=== PATIENT | female | born 1965 | race American Indian/Alaskan Native ===

== ENCOUNTER 2020-05-17 08:42 | Emergency (ER) | payer SELFPAY ==
[2020-05-17 09:29] VITALS: BP 188/92
--- NOTE | 2020-05-17 09:35 | Emergency Department Report ---
ED General Adult HPI - General Chief complaint: Nausea/Vomiting/Diarrhea Stated complaint: VOMITING/DIARRHEA Time Seen by Provider: 05/17/20 09:29 Source: patient Mode of arrival: Ambulatory Limitations: No Limitations - History of Present Illness Initial comments: Is a very pleasant 55-year-old female who presents to the emergency department with chief complaint of nausea, vomiting, diarrhea and sore throat over the past 2 days. She reports she recently had a in the family and since finding out this news she has been having the symptoms. She reports she has been having a lot of anxiety and crying. She denies any known past medical history, current medication use or known allergy medications. She denies any associated fever, chills, night sweats, headache, dizziness, blurry vision, hematemesis, melena, hematochezia, chest pain, shortness of breath, weakness or any other associated symptoms. - Related Data Previous Rx's Medication Instructions Recorded Last Taken Type Ondansetron [Zofran Odt] 4 mg PO Q8HR #30 tab.rapdis 05/17/20 Unknown Rx Allergies Allergy/AdvReac Type Severity Reaction Status Date / Time No Known Allergies Allergy Unverified 05/17/20 09:29 ED Review of Systems ROS: Stated complaint: VOMITING/DIARRHEA Other details as noted in HPI Comment: All other systems reviewed and negative Constitutional: denies: chills, fever Eyes: denies: eye pain, eye discharge, vision change ENT: denies: ear pain, throat pain Respiratory: denies: cough, shortness of breath, wheezing Cardiovascular: denies: chest pain, palpitations Endocrine: no symptoms reported Gastrointestinal: denies: abdominal pain, nausea, diarrhea Genitourinary: denies: urgency, dysuria, discharge Musculoskeletal: denies: back pain, joint swelling, arthralgia Skin: denies: rash, lesions Neurological: denies: headache, weakness, paresthesias Psychiatric: denies: anxiety, depression Hematological/Lymphatic: denies: easy bleeding, easy bruising ED Past Medical Hx - Past Medical History Previous Medical History?: No - Surgical History Past Surgical History?: No - Social History Smoking Status: Never Smoker Substance Use Type: None - Medications Home Medications: Home Medications Medication Instructions Recorded Confirmed Last Taken Type Ondansetron [Zofran Odt] 4 mg PO Q8HR #30 tab.rapdis 05/17/20 Unknown Rx ED Physical Exam - General Limitations: No Limitations General appearance: alert, in no apparent distress, anxious (Tearful) - Head Head exam: Present: atraumatic, normocephalic - Eye Eye exam: Present: normal appearance, PERRL, EOMI Pupils: Present: normal accommodation - ENT ENT exam: Present: normal exam, normal orophraynx, mucous membranes moist - Neck Neck exam: Present: normal inspection, full ROM. Absent: tenderness, meningismus - Respiratory Respiratory exam: Present: normal lung sounds bilaterally. Absent: respiratory distress, wheezes, rales, rhonchi, stridor - Cardiovascular Cardiovascular Exam: Present: regular rate, normal rhythm, normal heart sounds. Absent: systolic murmur, diastolic murmur, rubs, gallop - GI/Abdominal GI/Abdominal exam: Present: soft, normal bowel sounds. Absent: distended, tenderness, guarding, rebound, rigid - Extremities Exam Extremities exam: Present: normal inspection, full ROM, normal capillary refill. Absent: tenderness - Back Exam Back exam: Present: normal inspection, full ROM. Absent: tenderness, CVA tenderness (R), CVA tenderness (L) - Neurological Exam Neurological exam: Present: alert, oriented X3, CN II-XII intact, normal gait - Psychiatric Psychiatric exam: Present: normal affect, normal mood - Skin Skin exam: Present: warm, dry, intact, normal color. Absent: rash ED Course Vital Signs 05/17/20 09:24 Temperature 98.5 F Pulse Rate 91 H Respiratory 20 Rate Blood Pressure 188/92 O2 Sat by Pulse 98 Oximetry ED Medical Decision Making - Medical Decision Making Patient is nontoxic in no acute distress. Vital signs are stable other than she is slightly hypertensive however she is obviously upset. She is asymptomatic hypertension and I do not think any emergent intervention is needed at this time per the [employer]. I did recommend she get her blood pressure rechecked and check it frequently at least 2-3 times a day and if she develops any change or worsening symptoms she needs to return to the emerg ency department immediately. The patient was tearful in triage and states that all the symptoms started after a in the family. I suspect that her symptoms are likely secondary to a grief reaction. I did offer and recommend to do blood work including CBC, CMP, lipase, urinalysis for a routine abdominal pain work-up although she is not having any abdominal pain her abdominal exam was completely benign she politely declined and states she just wanted something for nausea. Recommend follow-up with her primary care doctor immediately and return to the emergency department if her symptoms change or worsen. She verbalized understand these instructions and all of her questions were answered. She understood that anytime she could return to the ER if her symptoms were to change, worsen or remain persistent. She is tolerating p.o. fluids well and in no acute distress. - Differential Diagnosis Enteritis, grief reaction, small bowel obstruction Critical care attestation.: If time is entered above; I have spent that time in minutes in the direct care of this critically ill patient, excluding procedure time. ED Disposition Clinical Impression: Nausea vomiting and diarrhea, Grief reaction, Elevated blood pressure reading Disposition: - TO HOME OR SELFCARE Is pt being admited?: No Condition: Stable Instructions: Nausea, Adult, Food Choices to Help Relieve Diarrhea, Adult Prescriptions: Ondansetron [Zofran Odt] 4 mg PO Q8HR #30 tab.rapdis Referrals: BESSIE WRIGHT MD [Staff Physician] - 3-5 Days [facility] [Provider Group] - 3-5 Days Forms: Work/School Release Form(ED) Time of Disposition: 09:34
== END 2020-05-17 10:03 | disposition home or self-care (01) ==
LOC: ED 08:42
DX: F43.21 Adjustment disorder with depressed mood (principal); R11.2 Nausea with vomiting, unspecified; R03.0 Elevated blood-pressure reading, without diagnosis of hypertension; R19.7 Diarrhea, unspecified; Z79.899 Other long term (current) drug therapy
CPT/HCPCS: 99282

== ENCOUNTER 2020-05-24 12:27 | Emergency (ER) | payer OTHER ==
[2020-05-24] MEDS ORDERED: MECLIZINE 25 MG TAB PO ONE (13:19)
[2020-05-24] MEDS ORDERED: ONDANSETRON 4 MG ODT TAB PO ONE (13:19)
--- NOTE | 2020-05-24 13:21 | Emergency Department Report ---
ED General Adult HPI - General Chief complaint: Weakness Stated complaint: V/N HEADACHE/EAR ACHE/MUSCLE CRAMPS/DIZZY Time Seen by Provider: 05/24/20 13:04 Source: patient Mode of arrival: Ambulatory Limitations: No Limitations - History of Present Illness Initial comments: 55-year-old female who reports remote history of vertigo but no other significant past history presents to the ER today with complaints of nausea, vomiting, diarrhea, headache and ear pain. Patient states her symptoms started about a week ago. She states that she was seen here when the symptoms first started. She states that she was diagnosed with a viral infection and was pre scribed Zofran. Patient states that she still continues to have intermittent nausea and vomiting despite the Zofran. She still continues to have intermittent diarrhea. She reports mild substernal chest pain but he thinks is related to the vomiting as well as mild sore throat which she thinks is also related to the vomiting. She reports intermittent dizziness which she describes as a spinning sensation, headache and mainly right ear pain. He states that she had a mild dry cough but URI symptoms. She denies any wheezing or shortness of breath. She denies any abdominal pain. She denies any abd surgeries in past. She denies any fever or chills. She denies any UTI symptoms or any abnormal vaginal symptoms. She is postmenopausal. MD Complaint: n/v/d; dizzy/FALLON/right ear pain -: Gradual, week(s) (1) - Related Data Previous Rx's Medication Instructions Recorded Last Taken Type Ondansetron [Zofran Odt] 4 mg PO Q8HR #30 tab.rapdis 05/17/20 Unknown Rx Cetirizine HCl [Zyrtec 10mg tab] 10 mg PO DAILY #30 tablet 05/24/20 Unknown Rx Meclizine [Antivert] 25 mg PO TID PRN #30 tablet 05/24/20 Unknown Rx Promethazine [Phenergan] 25 mg PO Q8HR PRN #15 tab 05/24/20 Unknown Rx metFORMIN [Glucophage] 500 mg PO BID #60 tablet 05/24/20 Unknown Rx Allergies Allergy/AdvReac Type Severity Reaction Status Date / Time No Known Allergies Allergy Verified 05/24/20 13:00 ED Review of Systems ROS: Stated complaint: V/N HEADACHE/EAR ACHE/MUSCLE CRAMPS/DIZZY Other details as noted in HPI Comment: All other systems reviewed and negative ENT: ear pain, throat pain (Secondary to vomiting). denies: dental pain, hearing loss, epistaxis Respiratory: cough (Mild dry). denies: orthopnea, shortness of breath, SOB with exertion, SOB at rest, wheezing Cardiovascular: chest pain (Substernal mainly when she vomits) Gastrointestinal: nausea, vomiting, diarrhea. denies: abdominal pain, constip ation, hematemesis, melena, hematochezia Genitourinary: denies: urgency, dysuria, frequency, hematuria, discharge, abnormal menses Musculoskeletal: myalgia. denies: back pain, joint swelling, arthralgia Skin: denies: rash, lesions Neurological: headache, vertigo Psychiatric: denies: anxiety, depression, auditory hallucinations, visual hallucinations, homicidal thoughts, suicidal thoughts ED Past Medical Hx - Past Medical History Additional medical history: anemic - Surgical History Past Surgical History?: No - Social History Smoking Status: Current Some Day Smoker Substance Use Type: None - Medications Home Medications: Home Medications Medication Instructions Recorded Confirmed Last Taken Type Ondansetron [Zofran Odt] 4 mg PO Q8HR #30 tab.rapdis 05/17/20 Unknown Rx Cetirizine HCl [Zyrtec 10mg tab] 10 mg PO DAILY #30 tablet 05/24/20 Unknown Rx Meclizine [Antivert] 25 mg PO TID PRN #30 tablet 05/24/20 Unknown Rx Promethazine [Phenergan] 25 mg PO Q8HR PRN #15 tab 05/24/20 Unknown Rx metFORMIN [Glucophage] 500 mg PO BID #60 tablet 05/24/20 Unknown Rx ED Physical Exam - General Limitations: No Limitations General appearance: alert, in no apparent distress - Head Head exam: Present: atraumatic, normocephalic, normal inspection - Eye Eye exam: Present: normal appearance, PERRL, EOMI Pupils: Present: normal accommodation - ENT ENT exam: Present: normal exam, mucous membranes moist - Expanded ENT Exam Expanded TM/Canal exam: Effusion: Right TM, Left TM Mouth exam: Present: normal external inspection Throat exam: Positive: normal inspection - Neck Neck exam: Present: normal inspection, full ROM. Absent: meningismus - Respiratory Respiratory exam: Present: normal lung sounds bilaterally. Absent: respiratory distress, wheezes, rales, rhonchi, chest wall tenderness - Cardiovascular Cardiovascular Exam: Present: regular rate, normal rhythm, normal heart sounds - GI/Abdominal GI/Abdominal exam: Present: soft. Absent: distended, tenderness, guarding - Back Exam Back exam: Present: normal inspection - Neurological Exam Neurological exam: Present: alert, oriented X3, CN II-XII intact, normal gait. Absent: motor sensory deficit - Psychiatric Psychiatric exam: Present: normal affect, normal mood - Skin Skin exam: Present: intact ED Course Vital Signs 05/24/20 05/24/20 12:57 18:01 Temperature 98.1 F Pulse Rate 93 H 82 Respiratory 18 16 Rate Blood Pressure 161/86 Blood Pressure 147/82 [Right] O2 Sat by Pulse 98 98 Oximetry ED Medical Decision Making - Lab Data Result diagrams: 05/24/20 13:58 05/24/20 13:58 - Radiology Data Patient: ROYCE BERTRAND MR#: [id number] : 1965 Acct:[id number] Age/Sex: 55 / F ADM Date: 05/24/20 Loc: ED Attending Dr: Ordering Physician: ROSEANN QUACH Date of Service: 05/24/20 Procedure(s): CT head/brain wo con Accession Number(s): [id number] cc: ROSEANN QUACH CT head/brain wo con INDICATION / CLINICAL INFORMATION: 55 years Female; Dizziness x 1 day.. TECHNIQUE: Routine CT head without contrast. All CT scans at this location are performed using CT dose reduction for ALARA by means of automated exposure control. COMPARISON: None. FINDINGS: BRAIN / INTRACRANIAL CONTENTS: No acute hemorrhage, mass effect, midline shift, hydrocephalus, or acute, large territorial infarct. No signs of significant atrophy or chronic infarct. No significant white matter abnormality seen. CRANIOCERVICAL JUNCTION: No significant abnormality. ORBITS: No significant abnormality of visualized orbits. SINUSES / MASTOIDS: Visualized paranasal sinuses and mastoid air cells are essentially clear. ADDITIONAL FINDINGS: None. IMPRESSION: 1. No focal mass, hemorrhage, hydrocephalus, or acute, large territorial infarct. Signer Name: Christian Rosen MD, III Signed: 05/24/2020 3:57 PM Workstation Name: [id number] Transcribed By: HR Dictated By: Christian Rosen MD Electronically Authenticated By: Christian Rosen MD Signed Date/Time: 05/24/201556 DD/ 55 TD/TT: - Medical Decision Making 55-year-old female who reports remote history of vertigo and anemia but no other significant past history presents to the ER today with complaints of nausea, vomiting, diarrhea, headache and ear pain. Patient states her symptoms started about a week ago. She states that she was seen here when the symptoms first started. She states that she was diagnosed with a viral infection and was prescribed Zofran. Patient states that she still continues to have intermittent nausea and vomiting despite the Zofran. She still continues to have intermittent diarrhea. She reports mild substernal chest pain but he thinks is related to the vomiting as well as mild sore throat which she thinks is also related to the vomiting. She reports intermittent dizziness which she describes as a spinning sensation, headache and mainly right ear pain. He states that she had a mild dry cough but URI symptoms. She denies any wheezing or shortness of breath. She denies any abdominal pain. She denies any fever or chills. She denies any UTI symptoms or any abnormal vaginal symptoms. She is postmenopausal. 1527: Lab/chest x-ray reviewed --CBC shows normal WBC, anemia with hemoglobin of 9.8/hematocrit of 31.1 and thrombocytopenia with a platelet count of 51; CMP shows elevated glucose of 298 (she last ate yesterday afternoon and drank juice and water around 10am), and mildly elevated LFTs. No evidence of DKA. Chest x- ray shows nothing acute. EKG shows sinus rhythm with a heart rate of 82. No STEMI or ischemic changes or significant arrhythmia. She is currently well-appearing, nontoxic and not in any acute distress. She is neurologically intact with a normal gait. Discussed the results with patient, she again denies any history of diabetes but she does admit to known history of thrombocytopenia which was being monitored by her doctor in [place]. She states since moving here she has not established with a local PCP or project asst. She states does admit to have symptoms of increased thirst and polyuria but she thought it was related to her anemia. Discussed case with Dr Diallo, he recommend doing a head CT, and giving IV fluids and that patient may need to be started on metformin 1820: Fingerstick after IV fluids show that blood sugar is improved and is now 237. Head CT shows nothing acute. Patient currently resting comfortably. She reports feeling little better after IV fluids. She has not had any vomiting or diarrhea during the stay. She denies any chest pain currently. Again patient is awake alert and oriented x3 and neurologically intact with a normal gait in the ER. She is not toxic or ill-appearing. Her history, diagnostic testing and current condition does not suggest unstable angina/acute coronary syndrome, TIA/CVA, DKA sepsis or any other significant emergent issues requiring admission or emergent consult at this time. Discussed results, concerning diagnosis and treatment plan with patient. Expressed to her the importance of follow-up with the primary care doctor in one will be provided for her and her discharge instructions. She expressed understanding of instructions and agree with plan. Patient stable at time of discharge. Critical care attestation.: If time is entered above; I have spent that time in minutes in the direct care of this critically ill patient, excluding procedure time. ED Disposition Clinical Impression: Type II diabetes mellitus, Vertigo, Nausea vomiting and diarrhea, Thrombocytopenia, Anemia Disposition: DC-01 TO HOME OR SELFCARE Is pt being admited?: No Does the pt Need Aspirin: No Condition: Stable Instructions: Type 2 Diabetes Mellitus, Diagnosis, Adult, Nausea and Vomiting, Adult, [id number], Dizziness, [id number], Diabetes Mellitus Type 2 in Adults (ED) Additional Instructions: Take the metformin as prescribed. Make sure you take it with food. Take the phe nergan as needed to help with nausea, and take the meclizine and the Zyrtec as prescribed. Drink lots of water. It is important that you follow-up with the primary care doctor listed on your discharge instructions for continued monitoring a few blood sugar especially while taking the Metformin and also continue monitoring of your anemia and thrombocytopenia and possible referral to project asst. Return to the ER if your symptoms worsens or changes in any way. Prescriptions: Meclizine [Antivert] 25 mg PO TID PRN #30 tablet PRN Reason: Vertigo metFORMIN [Glucophage] 500 mg PO BID #60 tablet Promethazine [Phenergan] 25 mg PO Q8HR PRN #15 tab PRN Reason: Nausea Cetirizine HCl [Zyrtec 10mg tab] 10 mg PO DAILY #30 tablet Referrals: BESSIE WRIGHT MD [Staff Physician] - 3-5 Days Forms: Work/School Release Form(ED) Time of Disposition: 18:25
--- NOTE | 2020-05-24 14:01 | XRay Report ---
. CHEST 2 VIEWS INDICATION / CLINICAL INFORMATION: cp. COMPARISON: None available. FINDINGS: SUPPORT DEVICES: None. HEART / MEDIASTINUM: No significant abnormality. LUNGS / PLEURA: No significant pulmonary or pleural abnormality. No pneumothorax. ADDITIONAL FINDINGS: No significant additional findings. IMPRESSION: 1. No acute cardiopulmonary abnormality. Signer Name: Marvin Trotter MD Signed: 05/24/2020 1:56 PM Workstation Name: [id number]
[2020-05-24 14:16] LABS: Basophils % (Auto) 0.7 % (0.0-1.8); Eosinophils # (Auto) 0.1 K/mm3 (0.0-0.4); Eosinophils % (Auto) 1.6 % (0.0-4.3); Hematocrit 31.1 % (30.3-42.9); Hemoglobin 9.8 gm/dl (10.1-14.3); Lymphocytes # (Auto) 1.2 K/mm3 (1.2-5.4); Lymphocytes % (Auto) 25.2 % (13.4-35.0); Mean Corpuscular HGB Conc 32 % (30-34); Monocytes # (Auto) 0.3 K/mm3 (0.0-0.8); Monocytes % (Auto) 6.5 % (0.0-7.3); Red Blood Count 5.02 M/mm3 (3.65-5.03)
[2020-05-24 14:21] LABS: Mean Corpuscular Volume 62 fl (79-97); Platelet Count 51 K/mm3 (140-440)
[2020-05-24 14:34] LABS: Alanine Aminotransferase 67 units/L (7-56); Albumin 4.1 g/dL (3.9-5); Blood Urea Nitrogen 8 mg/dL (7-17); Calcium 8.5 mg/dL (8.4-10.2); Hemolysis Index 0
[2020-05-24 14:47] LABS: BUN/Creatinine Ratio 16
[2020-05-24] MEDS ORDERED: SODIUM CHLORIDE 0.9% 1000 ML 1,000 ML IV ONE (15:33)
[2020-05-24 15:52] LABS: Bilirubin,Urine NEG (Negative); Blood,Urine NEG (Negative); Color,Urine Yellow (Yellow); Mucus,Urine FEW /HPF; Urobilinogen,Urine < 2.0 mg/dL (<2.0)
--- NOTE | 2020-05-24 16:01 | Cat Scan Report ---
CT head/brain wo con INDICATION / CLINICAL INFORMATION: 55 years Female; Dizziness x 1 day.. TECHNIQUE: Routine CT head without contrast. All CT scans at this location are performed using CT dos e reduction for ALARA by means of automated exposure control. COMPARISON: None. FINDINGS: BRAIN / INTRACRANIAL CONTENTS: No acute hemorrhage, mass effect, midline shift, hydrocephalus, or acu te, large territorial infarct. No signs of significant atrophy or chronic infarct. No significant whi te matter abnormality seen. CRANIOCERVICAL JUNCTION: No significant abnormality. ORBITS: No significant abnormality of visualized orbits. SINUSES / MASTOIDS: Visualized paranasal sinuses and mastoid air cells are essentially clear. ADDITIONAL FINDINGS: None. IMPRESSION: 1. No focal mass, hemorrhage, hydrocephalus, or acute, large territorial infarct. Signer Name: Christian Rosen MD, III Signed: 05/24/2020 3:57 PM Workstation Name: [id number]
[2020-05-24 18:03] VITALS: BP 147/82
--- NOTE | 2020-05-26 13:39 | Electrocardiograph Report ---
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
== END 2020-05-24 18:45 | disposition home or self-care (01) ==
LOC: ED 12:27
DX: D64.9 Anemia, unspecified (principal); D69.6 Thrombocytopenia, unspecified; E11.9 Type 2 diabetes mellitus without complications; R11.2 Nausea with vomiting, unspecified; R42 Dizziness and giddiness; R19.7 Diarrhea, unspecified; F17.200 Nicotine dependence, unspecified, uncomplicated; Z79.899 Other long term (current) drug therapy
CPT/HCPCS: 36415; 70450; 71046; 80053; 81001; 82550; 82962; 83690; 84484; 84703; 85025; 93005; 96360; 99284; J7030; Q0162

== ENCOUNTER 2020-06-10 18:03 | Emergency (ER) | payer SELFPAY ==
[2020-06-10] MEDS ORDERED: ASPIRIN 325 MG TAB PO ONE (18:09)
[2020-06-10 18:48] VITALS: BP 159/90
--- NOTE | 2020-06-10 18:58 | Emergency Department Report ---
ED General Adult HPI - General Chief complaint: Chest Pain Stated complaint: BODY PAIN Time Seen by Provider: 06/10/20 18:45 Source: patient Mode of arrival: Ambulatory Limitations: No Limitations - History of Present Illness Initial comments: 55 year old with past medical history of DM presents to ED with complain of anxiety. Patient states she has been very stressed lately. 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 She states that she was talking to her son on the phone today she started crying, hyperventilating and started having some substernal chest pain and so her coworker brought her to the emergency room. Patient states that she is feeling better since she arrived in the emergency room. She states that she knows that her symptoms are related to stress. She states that she has been doing with her anxiety and depression issues on her own. She has not seen a primary care doctor or counselor or psychiatrist for it. She denies any SI, HI or hallucinations. She states that she smokes cigarettes but does not do any illicit drugs. She denies alcohol abuse. MD Complaint: Anxiety/Chest pain -: Gradual, week(s) (2) - Related Data Previous Rx's Medication Instructions Recorded Last Taken Type metFORMIN [Glucophage] 500 mg PO BID #60 tablet 05/24/20 Unknown Rx diazePAM TAB [Valium] 2 mg PO TID PRN #10 tablet 06/10/20 Unknown Rx Allergies Allergy/AdvReac Type Severity Reaction Status Date / Time No Known Allergies Allergy Verified 06/10/20 18:09 ED Review of Systems ROS: Stated complaint: BODY PAIN Other details as noted in HPI Comment: All other systems reviewed and negative Constitutional: denies: chills, fever Eyes: denies: eye pain, eye discharge, vision change ENT: denies: ear pain, throat pain, dental pain, hearing loss, epistaxis Respiratory: shortness of breath. denies: cough, orthopnea, SOB with exertion, SOB at rest, stridor, wheezing Cardiovascular: chest pain. denies: palpitations, dyspnea on exertion, orthopnea, edema, syncope, paroxysmal nocturnal dyspnea Gastrointestinal: denies: abdominal pain, nausea, vomiting, diarrhea, constipation, hematemesis, melena, hematochezia Genitourinary: denies: urgency, dysuria, frequency, hematuria, discharge, abnormal menses, dyspareunia Musculoskeletal: denies: back pain, joint swelling, arthralgia Skin: denies: rash, lesions, change in color, change in hair/nails, pruritus Neurological: denies: headache, weakness, numbness, paresthesias, confusion, abnormal gait, vertigo Psychiatric: denies: anxiety, depression, auditory hallucinations, visual hallucinations, homicidal thoughts, suicidal thoughts Hematological/Lymphatic: denies: easy bleeding, easy bruising ED Past Medical Hx - Past Medical History Additional medical history: anemic - Social History Smoking Status: Current Every Day Smoker Substance Use Type: None - Medications Home Medications: Home Medications Medication Instructions Recorded Confirmed Last Taken Type metFORMIN [Glucophage] 500 mg PO BID #60 tablet 05/24/20 Unknown Rx diazePAM TAB [Valium] 2 mg PO TID PRN #10 tablet 06/10/20 Unknown Rx ED Physical Exam - General Limitations: No Limitations General appearance: alert, anxious, other (pt crying intermittently ) - Head Head exam: Present: atraumatic, normocephalic, normal inspection - Eye Eye exam: Present: normal appearance, PERRL, EOMI Pupils: Present: normal accommodation - ENT ENT exam: Present: normal exam, mucous membranes moist - Neck Neck exam: Present: normal inspection, full ROM - Respiratory Respiratory exam: Present: normal lung sounds bilaterally. Absent: respiratory distress - Cardiovascular Cardiovascular Exam: Present: regular rate, normal rhythm, normal heart sounds - GI/Abdominal GI/Abdominal exam: Present: soft. Absent: distended, tenderness, guarding - Extremities Exam Extremities exam: Present: normal inspection, full ROM, normal capillary refill. Absent: pedal edema, calf tenderness - Neurological Exam Neurological exam: Present: alert, oriented X3, CN II-XII intact, normal gait - Psychiatric Psychiatric exam: Present: depressed, anxious. Absent: manic, homicidal ideation, suicidal ideation - Skin Skin exam: Present: intact ED Course Vital Signs 06/10/20 18:09 Temperature 98.4 F Pulse Rate 92 H Respiratory 20 Rate Blood Pressure 159/90 O2 Sat by Pulse 99 Oximetry ED Medical Decision Making - Medical Decision Making 55 year old with past medical history of DM presents to ED with complain of anxiety. Patient states she has been very stressed lately. 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 She states that she was talking to her son on the phone today she started crying, hyperventilating and started having some substernal chest pain and so her coworker brought her to the emergency room. Patient states that she is feeling better since she arrived in the emergency room. She states that she knows that her symptoms are related to stress. She states that she has been doing with her anxiety and depression issues on her own. She has not seen a primary care doctor or counselor or psychiatrist for it. She denies any SI, HI or hallucinations. She states that she smokes cigarettes but does not do any illicit drugs. She denies alcohol abuse. She denies any history of heart disease, lung disease, PE or DVT. 1710: Patient appears anxious, she Intermittently, but she states that she is feeling better compared to when she first came into the ER. Chest pain work-up was ordered by triage nurse but patient is refusing work-up, she states that she knows that her symptoms are related to stress. She states that she is fine and she is ready to go home. EKG shows no acute ischemic changes, STEMI or significant dysrhythmias. Other than appearing anxious patient is overall not toxic, or ill-appearing and currently is not in any pain no respiratory distress. Her vital signs are stable. She is alert and oriented x3. She is neurologic intact with a normal gait. Discussed with patient that we will give her something to help her anxiety, but we will also give her resources to follow-up on an outpatient basis with the psychiatrist or counselor in the primary care doctor. Also discussed with her that if at any point her symptoms worsens or changes she needs to return immediately to the ER including if she develops suicidal homicidal ideation. Patient expressed understanding of instructions and agree with plan. Patient was stable at time of discharge Critical care attestation.: If time is entered above; I have spent that time in minutes in the direct care of this critically ill patient, excluding procedure time. ED Disposition Clinical Impression: Anxiety Disposition: DC-01 TO HOME OR SELFCARE Is pt being admited?: No Does the pt Need Aspirin: No Condition: Stable Instructions: Generalized Anxiety Disorder, Adult, Managing Anxiety, Adult Additional Instructions: Take the valium as prescribed and as needed. Follow up with primary care physician listed on discharge instructions and also follow up with one of the psych/counsellor on list given. Return to ED if symptoms worsens or changes in anyway. Prescriptions: diazePAM TAB [Valium] 2 mg PO TID PRN #10 tablet PRN Reason: Anxiety Referrals: BESSIE WRIGHT MD [Staff Physician] - 3-5 Days Forms: Work/School Release Form(ED) Time of Disposition: 18:59
--- NOTE | 2020-06-12 17:30 | Electrocardiograph Report ---
[facility] Test Date: 2020-06-10 Test Time: 18:12:56 Pat Name: ROYCE BERTRAND Department: Room: Gender: F Type Inspector: DARIELA BILLINGSLEYB: 1965 Requested By: VIRGINIA GONZALES Order Number: [id number] Reading MD: Hayden Gould Measurements Intervals [place] Rate: 86 P: 31 SC: 179 QRS: 2 QRSD: 97 T: 25 QT: 396 QTc: 475 Interpretive Statements Sinus rhythm Low voltage, precordial leads Compared to ECG 05/24/2020 15:22:06 Low QRS voltage now present Electronically Signed On 06-12-2020 17:30:18 EDT by Hayden Gould
== END 2020-06-10 20:07 | disposition home or self-care (01) ==
LOC: ED 18:03
DX: F41.9 Anxiety disorder, unspecified (principal); F17.200 Nicotine dependence, unspecified, uncomplicated; Z79.899 Other long term (current) drug therapy
CPT/HCPCS: 93005; 99281

== ENCOUNTER 2021-08-18 08:31 | Emergency (ER) | payer SELFPAY ==
[2021-08-18 08:51] VITALS: BP 169/94
== END 2021-08-18 19:27 | disposition left against medical advice (07) ==
LOC: ED 08:31
DX: R69 Illness, unspecified (principal); Z53.21 Procedure and treatment not carried out due to patient leaving prior to being seen by health care provider

== ENCOUNTER 2021-10-28 10:28 | Inpatient (IN) | payer SELFPAY ==
--- NOTE | 2021-10-28 11:00 | Event Note ---
ED Screening Note Date of service: 10/28/21 Time: 10:59 ED Screening Note: right side flank pain x 2 days with fever dysuria hr 120, Bp 184/154, 103.0 Temp stat for bed request to main due to sepsis , triage called charge nurse sujit This initial assessment/diagnostic orders/clinical plan/treatment(s) is/are subject to change based on patients health status, clinical progression and re- assessment by fellow clinical providers in the ED. Further treatment and workup at subsequent clinical providers discretion. Patient/guardian urged not to elope from the ED as their condition may be serious if not clinically assessed and managed. Initial orders include: Active Orders 24 hr Category Date Time Status CT abdomen pelvis w con Stat Cat Scan 10/28/21 10:56 Ordered Complete Blood Count Auto Diff Stat Lab 10/28/21 10:55 Ordered Comprehensive Metabolic Panel Stat Lab 10/28/21 10:55 Ordered Lactic Acid Stat Lab 10/28/21 10:56 Ordered Lipase Stat Lab 10/28/21 10:55 Ordered Urinalysis Complete Stat Lab 10/28/21 10:55 Ordered Blood Culture Routine Micro 10/28/21 10:58 Ordered Blood Culture Stat Micro 10/28/21 10:55 Ordered
[2021-10-28 11:39] LABS: Basophils # (Auto) 0.1 K/mm3 (0.0-0.1); Basophils % (Auto) 0.5 % (0.0-1.8); Eosinophils % (Auto) 0.1 % (0.0-4.3); Hematocrit 39.8 % (30.3-42.9); Hemoglobin 12.5 gm/dl (10.1-14.3); Lymphocytes # (Auto) 1.3 K/mm3 (1.2-5.4); Lymphocytes % (Auto) 10.4 % (13.4-35.0); Mean Corpuscular HGB Conc 31 % (30-34); Mean Corpuscular Volume 70 fl (79-97); Monocytes % (Auto) 7.8 % (0.0-7.3); Platelet Count 177 K/mm3 (140-440); Red Blood Count 5.67 M/mm3 (3.65-5.03); Red Cell Distribution Width 18.9 % (13.2-15.2)
[2021-10-28 12:08] LABS: Alanine Aminotransferase 41 units/L (7-56); Albumin 4.6 g/dL (3.9-5); BUN/Creatinine Ratio 13; Blood Urea Nitrogen 10 mg/dL (7-17); Calcium 9.5 mg/dL (8.4-10.2); Hemolysis Index 0
[2021-10-28] MEDS ORDERED: MORPHINE 4 MG/1 ML INJ IV ONE (13:09)
[2021-10-28] MEDS ORDERED: PIPERACILLIN/TAZOBACTAM 3.375 3.375 GM/50 ML BAG IV ONE (13:09)
[2021-10-28] MEDS ORDERED: ONDANSETRON 4 MG/2 ML INJ IV ONE (13:10)
[2021-10-28] MEDS ORDERED: SODIUM CHLORIDE 0.9% 1000 ML 1,000 ML IV ONE (13:38)
[2021-10-28] MEDS ORDERED: ACETAMINOPHEN 325 MG TAB PO ONE (13:41)
--- NOTE | 2021-10-28 13:41 | Emergency Department Report ---
ED Fever HPI - General Chief Complaint: Fever Stated Complaint: PAIN IN SIDE / POSS UTI Time Seen by Provider: 10/28/21 13:08 Source: patient, family Exam Limitations: no limitations - History of Present Illness Initial Comments: 56-year-old -Citizen Of [place] female with no significant past medical history complains of having fever, and back pain. Has had symptoms for the last 2 days admits to some back pain rating into the front. Timing/Duration: yesterday Fever Severity/Quality: greater than 100.5 F Fever Therapy SILVICULTURIST: none Associated Symptoms: abdominal pain, muscle aches ED Review of Systems ROS: Stated complaint: PAIN IN SIDE / POSS UTI Other details as noted in HPI Constitutional: denies: chills, fever Eyes: as per HPI ENT: as per HPI Respiratory: no symptoms reported Endocrine: no symptoms reported Gastrointestinal: abdominal pain Genitourinary: as per HPI, urgency, dysuria Skin: as per HPI Neurological: as per HPI Psychiatric: as per HPI Hematological/Lymphatic: as per HPI ED Past Medical Hx - Past Medical History Previous Medical History?: No Additional medical history: anemic - Surgical History Past Surgical History?: No - Social History Smoking Status: Never Smoker Substance Use Type: None - Medications Home Medications: Home Medications Medication Instructions Recorded Confirmed Last Taken Type metFORMIN [Glucophage] 500 mg PO BID #60 tablet 05/24/20 Unknown Rx diazePAM TAB [Valium] 2 mg PO TID PRN #10 tablet 06/10/20 Unknown Rx ED Physical Exam - General Limitations: No Limitations General appearance: alert, in no apparent distress - Head Head exam: Present: atraumatic, normocephalic - Eye Eye exam: Present: normal appearance, PERRL, EOMI - ENT ENT exam: Present: normal exam, normal orophraynx, mucous membranes moist - Neck Neck exam: Present: normal inspection, full ROM. Absent: tenderness, meningismus, lymphadenopathy - Respiratory Respiratory exam: Present: normal lung sounds bilaterally - Cardiovascular Cardiovascular Exam: Present: regular rate, normal rhythm - GI/Abdominal GI/Abdominal exam: Present: soft, guarding, normal bowel sounds. Absent: distended, tenderness - Extremities Exam Extremities exam: Present: normal inspection, full ROM - Back Exam Back exam: Present: normal inspection, full ROM. Absent: tenderness, CVA tenderness (R), CVA tenderness (L) - Neurological Exam Neurological exam: Present: alert, oriented X3 - Psychiatric Psychiatric exam: Present: normal affect, normal mood - Skin Skin exam: Present: warm ED Course Vital Signs 10/28/21 10/28/21 10/28/21 10:57 12:00 12:01 Temperature 103 F H 99.1 F Pulse Rate 130 H 110 H Respiratory 18 16 Rate Blood Pressure 184/154 142/72 [Right] O2 Sat by Pulse 100 98 Oximetry 10/28/21 10/28/21 12:22 12:24 Temperature Pulse Rate 111 H Respiratory 16 Rate Blood Pressure [Right] O2 Sat by Pulse 100 Oximetry ED Medical Decision Making - Lab Data Result diagrams: 10/28/21 11:02 10/28/21 11:02 Critical care attestation.: If time is entered above; I have spent that time in minutes in the direct care of this critically ill patient, excluding procedure time. ED Disposition Clinical Impression: Pyelonephritis Disposition: ADMITTED INPATIENT Is pt being admited?: Yes Does the pt Need Aspirin: No Condition: Serious
--- NOTE | 2021-10-28 14:35 | Cat Scan Report ---
CT ABDOMEN AND PELVIS WITH CONTRAST INDICATION / CLINICAL INFORMATION: right flank pain with fever and dysuria. TECHNIQUE: Axial CT images were obtained through the abdomen and pelvis after 100 cc Omnipaque [address] scans at this location are performed using CT dose reduction for ALARA by means of automated exposure control. COMPARISON: None available. FINDINGS: LOWER CHEST: No significant abnormality. LIVER: There is hepatic steatosis. The right hepatic lobe is enlarged, measuring 23 cm in length. No other significant abnormality. GALLBLADDER: There is cholelithiasis without evidence of acute cholecystitis. BILE DUCTS: No significant abnormality. PANCREAS: No significant abnormality. SPLEEN: No significant abnormality. ADRENALS: No significant abnormality. RIGHT KIDNEY/URETER: An ovoid area of decreased attenuation is seen laterally along the right upper r enal pole measuring up to 3.5 cm on image 61 of series 601 and 3.7 cm on image 77 series 2. There is mild urothelial thickening/enhancement. A simple appearing posterior upper pole cyst measures 1.1 cm. No other significant abnormality. LEFT KIDNEY/URETER: No significant abnormality. STOMACH/SMALL BOWEL: No significant abnormality. COLON: No significant abnormality. APPENDIX: No significant abnormality. PERITONEUM: No free fluid. No free air. No fluid collection. LYMPH NODES: No significant adenopathy. VASCULATURE: No significant abnormality. URINARY BLADDER: No significant abnormality. REPRODUCTIVE ORGANS: No significant abnormality. ADDITIONAL FINDINGS: None. BONES: No significant abnormality IMPRESSION: 1. Suspected right urinary tract infection versus evolving polynephritis with a questionable right re nal abscess as above. 2. Additional findings as above. Signer Name: Fermin Retana MD Signed: 10/28/2021 2:30 PM Workstation Name: [email or web address]
[2021-10-28] MEDS ORDERED: HYDROmorphone 1 MG/1 ML INJ IV ONE (16:45)
[2021-10-28] MEDS ORDERED: HYDROmorphone 1 MG/1 ML INJ ONE (16:52)
[2021-10-28] MEDS ORDERED: KETOROLAC 30 MG/1 ML INJ ONE (17:44)
[2021-10-28] MEDS ORDERED: KETOROLAC 30 MG/1 ML INJ IV ONE (17:51)
[2021-10-28] MEDS ORDERED: HYDROmorphone 0.5 MG/0.5 ML INJ IV PRN ×2 (18:45)
[2021-10-28] MEDS ORDERED: ONDANSETRON 4 MG/2 ML INJ IV PRN (18:45)
[2021-10-28] MEDS ORDERED: VANCOMYCIN 1,750 MG in SODIUM CHLORIDE 0.9% 500 ML 500 ML IV ONE (18:45)
[2021-10-28] MEDS ORDERED: ACETAMINOPHEN 325 MG TAB PO PRN (18:45)
[2021-10-28] MEDS ORDERED: SODIUM CHLORIDE 0.9% 1000 ML 1,000 ML IV SCH (18:45)
[2021-10-28] MEDS ORDERED: SODIUM CHLORIDE 0.9% 1000 ML IV SOLN IV ONE (18:45)
--- NOTE | 2021-10-28 18:49 | History and Physical Report ---
History of Present Illness Chief complaint: I have a fever and my side hurts History of present illness: 56 YO Female with DM, Medication Noncompliance presents to ED for evaluation. Patient reports "I have a fever and my side hurts". Patient states that she has experienced right flank pain and fever over the past 2 days with persistent symptoms over the same timeframe. Patient transported to [facility] via private [place] for further care and evaluation of the aforementioned symptoms. The patient was seen and evaluated in the emergency department. All lab and imaging studies reviewed. Patient found to have sepsis secondary to pyelonephritis and due to urinary tract infection, metabolic acidosis, as well as uncontrolled diabetes mellitus. Patient CT scan showed intrarenal hypodensity. Urology transfer line notified and patient deemed not a candidate for transfer and recommend IV antibiotic therapy. Patient mated to medical floor and initiated on sepsis protocol and treated with IV antibiotic therapy and IV fluid resuscitation therapy. Patient has chest pain, palpitation, adductive cough, skin rash, recent contact, hematuria, ingestion of food/water from new or different sources, trauma, or known exposure to COVID-19. No prior admission for review. No medication at the time of admission for reconciliation. Advanced care planning conducted in ED. Past History Past Medical History: diabetes Past Surgical History: No surgical history, Other (Reviewed) Social history: single. denies: smoking, alcohol abuse, prescription drug abuse Family history: hypertension Medications and Allergies Allergies Allergy/AdvReac Type Severity Reaction Status Date / Time No Known Allergies Allergy Verified 06/10/20 18:09 Home Medications Medication Instructions Recorded Confirmed Last Taken Type metFORMIN [Glucophage] 500 mg PO BID #60 tablet 05/24/20 Unknown Rx diazePAM TAB [Valium] 2 mg PO TID PRN #10 tablet 06/10/20 Unknown Rx Review of Systems Constitutional: fever, no weight loss, no weight gain, no chills, no sweats Ears, nose, mouth and throat: no ear pain, no ear discharge, no nasal congestion Breasts: no change in shape, no swelling, no mass Cardiovascular: no chest pain, no orthopnea, no palpitations, no rapid/irregular heart beat, no edema Respiratory: no cough, no excessive sputum, no hemoptysis Gastrointestinal: no abdominal pain, no nausea, no diarrhea, no change in bowel habits Genitourinary Female: flank pain, no dysuria, no urinary frequency, no urgency Rectal: no pain, no incontinence, no bleeding Musculoskeletal: no neck stiffness, no shooting arm pain, no arm numbness/tingling, no low back pain, no shooting leg pain Integumentary: no rash, no pruritis, no redness, no wounds, no jaundice Neurological: no head injury, no weakness, no numbness, no tingling, no syncope, no tremors Psychiatric: no memory loss, no sleep disturbances, no hypersomnia, no change in libido, no suicidal ideation, no disorientation Endocrine: no cold intolerance, no polyphagia, no excessive sweating, no flushing Hematologic/Lymphatic: no easy bruising, no easy bleeding Allergic/Immunologic: no urticaria, no allergic rhinitis, no wheezing Exam - Constitutional Vitals: Temp Pulse Resp BP Pulse Ox 99.1 F 111 H 16 142/72 100 10/28/21 12:00 10/28/21 12:22 10/28/21 12:24 10/28/21 12:01 10/28/21 12:24 General appearance: Present: mild distress - EENT Eyes: Present: PERRL ENT: hearing intact, clear oral mucosa - Neck Neck: Present: supple, normal ROM - Respiratory Respiratory effort: normal Respiratory: bilateral: CTA - Cardiovascular Heart Sounds: Present: S1 & S2. Absent: rub, click - Extremities Extremities: pulses symmetrical, No edema Peripheral Pulses: abnormal (Capillary refill greater than 3.5 seconds) - Abdominal General gastrointestinal: Present: soft, non-tender, non-distended, normal bowel sounds Female genitourinary: Present: normal - Integumentary Integumentary: Present: clear, warm, dry - Musculoskeletal Musculoskeletal: gait normal, strength equal bilaterally - Psychiatric Psychiatric: appropriate mood/affect, intact judgment & insight - Neurologic Neurologic: CNII-XII intact, moves all extremities Results - Labs CBC & Chem 7: 10/28/21 11:02 10/28/21 11:02 Labs: Abnormal lab results 10/28/21 10/28/21 10/28/21 Range/Units 11:02 11:02 11:02 WBC 12.4 H (4.5-11.0) K/mm3 RBC 5.67 H (3.65-5.03) M/mm3 MCV 70 L (79-97) fl MCH 22 L (28-32) pg RDW 18.9 H (13.2-15.2) % Lymph % (Auto) 10.4 L (13.4-35.0) % [place] % (Auto) 7.8 H (0.0-7.3) % [place] # (Auto) 1.0 H (0.0-0.8) K/mm3 Seg Neutrophils % 81.2 H (40.0-70.0) % Seg Neutrophils # 10.1 H (1.8-7.7) K/mm3 Chloride 97.6 L (98-107) mmol/L Glucose 242 H (65-100) mg/dL Lactic Acid 2.60 H* (0.7-2.0) mmol/L Alkaline Phosphatase 147 H (35-129) units/L Assessment and Plan - Patient Problems (1) Sepsis Current Visit: Yes Status: Acute Qualifiers: Severe sepsis acute organ dysfunction type: acute renal failure Plan to address problem: Sepsis protocol: Chest x-ray, CBC, urinalysis, IV fluid resuscitation therapy, IV antibiotic therapy, blood culture. Maintain mean arterial pressure greater than equal to 65, monitor fluid balance, serial lactic acid level. (2) Pyelonephritis Current Visit: Yes Status: Acute Plan to address problem: Urinalysis, IV antibiotic therapy, CT scan abdomen and pelvis, (3) UTI (urinary tract infection) Current Visit: Yes Status: Acute Qualifiers: Encounter type: initial encounter Plan to address problem: IV antibiotic therapy, urinalysis. Supportive care, pain control. (4) Diabetes Current Visit: Yes Status: Acute Plan to address problem: Consistent carbohydrate diet, Accu-Chek, insulin protocol, hypoglycemia protocol. (5) Metabolic acidosis Current Visit: Yes Status: Acute Plan to address problem: IV fluid resuscitation therapy, serial lactic acid level, treat sepsis. (6) DVT prophylaxis Current Visit: Yes Status: Acute Plan to address problem: SCDs to bilateral lower extremities while in bed, (7) Advance care planning Current Visit: Yes Status: Acute Plan to address problem: Disease education conducted, care plan discussed, diagnoses discussed, prognosis discussed, patient acknowledges understanding and agreement with care plan, +30 minutes. (8) Preventative health care Current Visit: Yes Status: Acute Plan to address problem: Patient counseled regarding primary care follow-up for all age and risk factor appropriate screening test. Patient instructed to follow-up with [facility] for all age and risk factor appropriate screening test. +30 minutes.
[2021-10-28] MEDS ORDERED: DEXTROSE 50% IN WATER (25GM) 50 ML SYRINGE IV PRN (18:51)
[2021-10-28] MEDS ORDERED: diazePAM 2 MG TAB PO PRN (18:51)
[2021-10-28] MEDS ORDERED: VANCOMYCIN PHARMACY TO DOSE IV SCH (19:00)
[2021-10-28] MEDS: CEFEPIME/NS 2 GM/100 ML 2 GM/100 ML BAG IV SCH (19:30)
[2021-10-29] MEDS: oxyCODONE /ACETAMINOPHEN 5-325MG TAB PO PRN ×3 (01:14→22:46)
[2021-10-29] MEDS: ACETAMINOPHEN 325 MG TAB PO PRN ×3 (04:01→19:20)
[2021-10-29] MEDS: INSULIN LISPRO 100 UNIT/ML SUB-Q SCH ×5 (04:08→18:19)
[2021-10-29 08:29] LABS: Hematocrit 29.7 % (30.3-42.9); Hemoglobin 9.6 gm/dl (10.1-14.3); Mean Corpuscular HGB Conc 32 % (30-34); Platelet Count 100 K/mm3 (140-440); Red Blood Count 4.31 M/mm3 (3.65-5.03); Red Cell Distribution Width 18.5 % (13.2-15.2)
[2021-10-29 08:30] LABS: Mean Corpuscular Volume 69 fl (79-97)
[2021-10-29 08:50] LABS: Blood Urea Nitrogen 7 mg/dL (7-17); Calcium 8.3 mg/dL (8.4-10.2); Hemolysis Index 0
[2021-10-29 08:56] LABS: BUN/Creatinine Ratio 10
[2021-10-29] MEDS ORDERED: ACETAMINOPHEN 325 MG TAB PO ONE (09:00)
[2021-10-29] MEDS: CEFEPIME/NS 2 GM/100 ML 2 GM/100 ML BAG IV SCH ×2 (09:45→23:18)
--- NOTE | 2021-10-29 10:22 | Consultation ---
History of Present Illness - Reason for Consult Consult date: 10/29/21 - History of Present Illness -year-old complaining of fevers and flank pain. This began approximately 2 days prior to admission has been persistent since onset. On admission she was found to have sepsis with pyelonephritis, as such we are consulted. Febrile to 103.3 with a white count 13.5. Blood cultures positive for gram- negative rods awaiting finalization. Currently on cefepime Imaging personally reviewed: CT abdomen pelvis: Right pyelonephritis, possible renal abscess Review of Systems: Bold if positive, otherwise negative General: fevers, chills, rigors HEENT: visual disturbance, diplopia, eye pain Respiratory: cough, sputum, hemoptysis, shortness of breath Cardiovascular: chest pain, syncope Gastrointestinal: nausea, vomiting, diarrhea, abdominal pain Genitourinary: dysuria, hematuria, flank pain Musculoskeletal: neck pain, back pain, joint pain, edema Neurologic: headaches, seizures Hematologic: easy bruising or bleeding Endocrine: night sweats, acute weight loss Skin: rash, jaundice, redness Psychiatric: suicidal, homicidal ideation Past History Past Medical History: diabetes Past Surgical History: No surgical history, Other (Reviewed) Social history: single. denies: smoking, alcohol abuse, prescription drug abuse Family history: hypertension Medications and Allergies Allergies Allergy/AdvReac Type Severity Reaction Status Date / Time No Known Allergies Allergy Verified 06/10/20 18:09 Home Medications Medication Instructions Recorded Confirmed Last Taken Type metFORMIN [Glucophage] 500 mg PO BID #60 tablet 05/24/20 Unknown Rx diazePAM TAB [Valium] 2 mg PO TID PRN #10 tablet 06/10/20 Unknown Rx Active Meds: Active Medications Acetaminophen (Acetaminophen 325 Mg Tab) 650 mg PO Q6H PRN PRN Reason: Pain, Mild (1-3) Last Admin: 10/29/21 04:01 Dose: 650 mg Dextrose (Dextrose 50% In Water (25gm) 50 Ml Syringe) 50 ml IV Q30MIN PRN; Protocol PRN Reason: Hypoglycemia Diazepam (Diazepam 2 Mg Tab) 2 mg PO TID PRN PRN Reason: Anxiety Hydromorphone HCl (Hydromorphone 0.5 Mg/0.5 Ml Inj) 0.25 mg IV Q4H PRN PRN Reason: Pain, Moderate (4-6) Hydromorphone HCl (Hydromorphone 0.5 Mg/0.5 Ml Inj) 0.5 mg IV Q23H PRN PRN Reason: Pain , Severe (7-10) Cefepime HCl (Cefepime/Ns 2 Gm/100 Ml) 2 gm in 100 mls @ 200 mls/hr IV Q12H [facility]; Protocol Last Admin: 10/29/21 09:45 Dose: 200 mls/hr Insulin Human Lispro (Insulin Lispro 100 Unit/Ml) 0 unit SUB-Q ACHS [facility]; Protocol Last Admin: 10/29/21 09:44 Dose: 3 unit Ondansetron HCl (Ondansetron 4 Mg/2 Ml Inj) 4 mg IV Q8H PRN PRN Reason: Nausea And Vomiting Oxycodone/Acetaminophen (Oxycodone /Acetaminophen 5-325mg Tab) 1 tab PO Q6H PRN PRN Reason: Pain, Moderate (4-6) Last Admin: 10/29/21 01:14 Dose: 1 tab Sodium Chloride (Sodium Chloride 0.9% 10 Ml Flush Syringe) 10 ml IV BID [facility] Last Admin: 10/29/21 09:50 Dose: 10 ml Sodium Chloride (Sodium Chloride 0.9% 10 Ml Flush Syringe) 10 ml IV PRN PRN PRN Reason: LINE FLUSH Physical Examination - Physical Exam Narrative exam: Physical Exam: Constitutional: Alert, cooperative. No acute distress Head, Ears, Nose: Normocephalic, atraumatic. External ears, nose normal Eyes: Conjunctivae/corneas clear. No icterus. No ptosis. Neck: Supple, no meningeal signs Oral: dentition fair, no thrush Cardiovascular: S1, S2 normal. Respiratory: Good air entry, clear to auscultation bilaterally GI: Soft, non-tender; bowel sounds normal. No peritoneal signs. Musculoskeletal: Right flank pain Skin: No rash or abscess Hem/Lymphatic: No palpable cervical or supraclavicular nodes. No lymphangitis Psych: Mood ok. Affect normal Neurological: Awake, alert, oriented. No gross abnormality - Constitutional Vitals: Vital Signs Temp Pulse Resp BP Pulse Ox 103.1 F H 69 20 160/73 100 10/29/21 05:43 10/29/21 05:55 10/29/21 05:59 10/29/21 05:43 10/29/21 05:59 Temperature -Last 24 Hours Temperature 103.1 F Temperature 103.3 F Temperature 103.3 F Temperature 98.5 F Temperature 99.1 F Temperature 103 F Results - Labs CBC & Chem 7: 10/29/21 08:08 10/29/21 08:08 Labs: Abnormal lab results 10/28/21 10/28/21 10/28/21 Range/Units 11:02 11:02 11:02 WBC 12.4 H (4.5-11.0) K/mm3 RBC 5.67 H (3.65-5.03) M/mm3 Hgb (10.1-14.3) gm/dl Hct (30.3-42.9) % MCV 70 L (79-97) fl MCH 22 L (28-32) pg RDW 18.9 H (13.2-15.2) % Plt Count (140-440) K/mm3 Lymph % (Auto) 10.4 L (13.4-35.0) % [place] % (Auto) 7.8 H (0.0-7.3) % [place] # (Auto) 1.0 H (0.0-0.8) K/mm3 Seg Neutrophils % 81.2 H (40.0-70.0) % Seg Neutrophils # 10.1 H (1.8-7.7) K/mm3 Potassium (3.6-5.0) mmol/L Chloride 97.6 L (98-107) mmol/L Carbon Dioxide (22-30) mmol/L Glucose 242 H (65-100) mg/dL POC Glucose (70-105) mg/dL Lactic Acid 2.60 H* (0.7-2.0) mmol/L Calcium (8.4-10.2) mg/dL Alkaline Phosphatase 147 H (35-129) units/L 10/29/21 10/29/21 10/29/21 Range/Units 04:08 07:53 08:08 WBC 13.5 H (4.5-11.0) K/mm3 RBC (3.65-5.03) M/mm3 Hgb 9.6 L (10.1-14.3) gm/dl Hct 29.7 L D (30.3-42.9) % MCV 69 L (79-97) fl MCH 22 L (28-32) pg RDW 18.5 H (13.2-15.2) % Plt Count 100 L (140-440) K/mm3 Lymph % (Auto) (13.4-35.0) % [place] % (Auto) (0.0-7.3) % [place] # (Auto) (0.0-0.8) K/mm3 Seg Neutrophils % (40.0-70.0) % Seg Neutrophils # (1.8-7.7) K/mm3 Potassium (3.6-5.0) mmol/L Chloride (98-107) mmol/L Carbon Dioxide (22-30) mmol/L Glucose (65-100) mg/dL POC Glucose 195 H 214 H (70-105) mg/dL Lactic Acid (0.7-2.0) mmol/L Calcium (8.4-10.2) mg/dL Alkaline Phosphatase (35-129) units/L // Range/Units 08:08 WBC (4.5-11.0) K/mm3 RBC (3.65-5.03) M/mm3 Hgb (10.1-14.3) gm/dl Hct (30.3-42.9) % MCV (79-97) fl MCH (28-32) pg RDW (13.2-15.2) % Plt Count (140-440) K/mm3 Lymph % (Auto) (13.4-35.0) % [place] % (Auto) (0.0-7.3) % [place] # (Auto) (0.0-0.8) K/mm3 Seg Neutrophils % (40.0-70.0) % Seg Neutrophils # (1.8-7.7) K/mm3 Potassium 3.1 L D (3.6-5.0) mmol/L Chloride (98-107) mmol/L Carbon Dioxide 21 L (22-30) mmol/L Glucose 208 H (65-100) mg/dL POC Glucose (70-105) mg/dL Lactic Acid (0.7-2.0) mmol/L Calcium 8.3 L (8.4-10.2) mg/dL Alkaline Phosphatase (35-129) units/L Assessment and Plan Cultures: Blood culture GNR pending finalization A/P: 56 yo F PMHx Dm2 presents with: #Acute sepsis: with fevers, leukocytosis. Secondary to bacteremia; pyelonephrit is #Right sided pyelonephritis: with possible renal abscess. If sepsis picture does not improve may need to repeat CT with contrast to further evaluate for potential abscess. #DM2: tight glycemic control for best outcomes. Recs: -Continue cefepime, increase to 2g q8h. -Follow up blood/urine cultures. If ESBL change to meropenem 1g q8h. -If sepsis picture resolves will plan to DC on Cipro 500mg q12h to complete 14 days total antibiotics. -If no improvement would need CT with contrast to re-evaluate potential abscess Thank you for the consult, we will continue to follow. MD Ginna [facility] O: [phone] F: [phone]
--- NOTE | 2021-10-29 11:43 | Consultation ---
History of Present Illness - Reason for Consult Consult date: 10/29/21 Right pyelonephrosis - History of Present Illness Patient with a history of diabetes, no surgical history. Patient has no history of kidney stones. She has a history of UTIs as a teenager but none recently. She presents with worsening right flank pain. In the ER, the patient underwent a CT of the abdomen pelvis with contrast which demonstrated decreased perfusion to the upper pole of the right kidney with decreased attenuation. A small simple cyst is present in upper pole as well. No abscess or fluid collection. No hydronephrosis. No significant Red nephric stranding. Patient is been started on empiric antibiotic. At time of examination, the patient is sitting up at bedside and eating breakfast with no significant complaints. Past History Past Medical History: diabetes Past Surgical History: No surgical history, Other (Reviewed) Social history: single. denies: smoking, alcohol abuse, prescription drug abuse Family history: hypertension Medications and Allergies Allergies Allergy/AdvReac Type Severity Reaction Status Date / Time No Known Allergies Allergy Verified 06/10/20 18:09 Home Medications Medication Instructions Recorded Confirmed Last Taken Type metFORMIN [Glucophage] 500 mg PO BID #60 tablet 05/24/20 Unknown Rx diazePAM TAB [Valium] 2 mg PO TID PRN #10 tablet 06/10/20 Unknown Rx Active Meds: Active Medications Acetaminophen (Acetaminophen 325 Mg Tab) 650 mg PO Q6H PRN PRN Reason: Pain, Mild (1-3) Last Admin: 10/29/21 04:01 Dose: 650 mg Dextrose (Dextrose 50% In Water (25gm) 50 Ml Syringe) 50 ml IV Q30MIN PRN; Protocol PRN Reason: Hypoglycemia Diazepam (Diazepam 2 Mg Tab) 2 mg PO TID PRN PRN Reason: Anxiety Hydromorphone HCl (Hydromorphone 0.5 Mg/0.5 Ml Inj) 0.25 mg IV Q4H PRN PRN Reason: Pain, Moderate (4-6) Hydromorphone HCl (Hydromorphone 0.5 Mg/0.5 Ml Inj) 0.5 mg IV Q23H PRN PRN Reason: Pain , Severe (7-10) Cefepime HCl (Cefepime/Ns 2 Gm/100 Ml) 2 gm in 100 mls @ 200 mls/hr IV Q12H [facility]; Protocol Last Admin: 10/29/21 09:45 Dose: 200 mls/hr Insulin Human Lispro (Insulin Lispro 100 Unit/Ml) 0 unit SUB-Q ACHS [facility]; Protocol Last Admin: 10/29/21 09:44 Dose: 3 unit Ondansetron HCl (Ondansetron 4 Mg/2 Ml Inj) 4 mg IV Q8H PRN PRN Reason: Nausea And Vomiting Oxycodone/Acetaminophen (Oxycodone /Acetaminophen 5-325mg Tab) 1 tab PO Q6H PRN PRN Reason: Pain, Moderate (4-6) Last Admin: 10/29/21 01:14 Dose: 1 tab Sodium Chloride (Sodium Chloride 0.9% 10 Ml Flush Syringe) 10 ml IV BID [facility] Last Admin: 10/29/21 09:50 Dose: 10 ml Sodium Chloride (Sodium Chloride 0.9% 10 Ml Flush Syringe) 10 ml IV PRN PRN PRN Reason: LINE FLUSH Review of Systems All systems: negative Exam - Constitutional Vitals: Temp Pulse Resp BP Pulse Ox 103.1 F H 69 20 160/73 99 10/29/21 05:43 10/29/21 05:55 10/29/21 05:59 10/29/21 05:43 10/29/21 11:36 General appearance: Present: no acute distress - EENT ENT: hearing intact - Neck Neck: Present: supple, normal ROM - Respiratory Respiratory effort: normal - Abdominal General gastrointestinal: Present: deferred - Psychiatric Psychiatric: appropriate mood/affect, cooperative Results - Labs CBC & Chem 7: 10/29/21 08:08 10/29/21 08:08 Labs: Abnormal lab results 10/28/21 10/28/21 10/28/21 Range/Units 11:02 11:02 11:02 WBC 12.4 H (4.5-11.0) K/mm3 RBC 5.67 H (3.65-5.03) M/mm3 Hgb (10.1-14.3) gm/dl Hct (30.3-42.9) % MCV 70 L (79-97) fl MCH 22 L (28-32) pg RDW 18.9 H (13.2-15.2) % Plt Count (140-440) K/mm3 Lymph % (Auto) 10.4 L (13.4-35.0) % Potassium (3.6-5.0) mmol/L Chloride 97.6 L (98-107) mmol/L Carbon Dioxide (22-30) mmol/L Glucose 242 H (65-100) mg/dL POC Glucose (70-105) mg/dL Lactic Acid 2.60 H* (0.7-2.0) mmol/L Calcium (8.4-10.2) mg/dL Alkaline Phosphatase 147 H (35-129) units/L 10/29/21 10/29/21 10/29/21 Range/Units 04:08 07:53 08:08 WBC 13.5 H (4.5-11.0) K/mm3 RBC (3.65-5.03) M/mm3 Hgb 9.6 L (10.1-14.3) gm/dl Hct 29.7 L D (30.3-42.9) % MCV 69 L (79-97) fl MCH 22 L (28-32) pg RDW 18.5 H (13.2-15.2) % Plt Count 100 L (140-440) K/mm3 Lymph % (Auto) (13.4-35.0) % Potassium (3.6-5.0) mmol/L Chloride (98-107) mmol/L Carbon Dioxide (22-30) mmol/L Glucose (65-100) mg/dL POC Glucose 195 H 214 H (70-105) mg/dL Lactic Acid (0.7-2.0) mmol/L Calcium (8.4-10.2) mg/dL Alkaline Phosphatase (35-129) units/L 10/29/21 Range/Units 08:08 WBC (4.5-11.0) K/mm3 RBC (3.65-5.03) M/mm3 Hgb (10.1-14.3) gm/dl Hct (30.3-42.9) % MCV (79-97) fl MCH (28-32) pg RDW (13.2-15.2) % Plt Count (140-440) K/mm3 Lymph % (Auto) (13.4-35.0) % Potassium 3.1 L D (3.6-5.0) mmol/L Chloride (98-107) mmol/L Carbon Dioxide 21 L (22-30) mmol/L Glucose 208 H (65-100) mg/dL POC Glucose (70-105) mg/dL Lactic Acid (0.7-2.0) mmol/L Calcium 8.3 L (8.4-10.2) mg/dL Alkaline Phosphatase (35-129) units/L - Imaging and Cardiology CT scan - abdomen: report reviewed, image reviewed CT scan - pelvis: report reviewed, image reviewed Assessment and Plan Patient with suspected right pyonephrosis with persistent fever despite initiation of antibiotics. From an IR perspective, there is no intervention available. No hydronephrosis or no drainable fluid collection. Would recommend urology consultation. Infectious disease note noted. If the patient does not significantly improve over the next 2 to 3 days, repeat imaging may be beneficial.
--- NOTE | 2021-10-29 11:47 | Electrocardiograph Report ---
[facility] Test Date: 2021-10-29 Test Time: 04:38:24 Pat Name: ROYCE BERTRAND Department: Room: A381 1 Gender: F Back Sizer: LUCIE : 1965 Requested By: FRANCISCO JAVIER ARREGUIN Order Number: [id number] Reading MD: Júnior Norton Measurements Intervals [place] Rate: 122 P: 65 WI: 168 QRS: 3 QRSD: 86 T: QT: 306 QTc: 436 Interpretive Statements Sinus tachycardia Nonspecific T abnrm, anterolateral leads Compared to ECG 06/10/2020 18:12:56 Sinus rhythm no longer present Electronically Signed On 10-29-2021 11:47:46 EDT by Júnior Norton
[2021-10-29 12:30] LABS: Band Neutrophils # (Manual) 0.7 K/mm3; Basophils % (Manual) 0 % (0.0-1.8); Eosinophils % (Manual) 0 % (0.0-4.3); Total Cells Counted 100
[2021-10-29 12:31] LABS: Platelet Estimate Consistent w Auto; Target Cells Few
[2021-10-29 12:32] LABS: Hypochromasia 1+
[2021-10-29] MEDS: POTASSIUM CHLORIDE ER 20 MEQ TAB PO SCH ×2 (16:01→22:46)
--- NOTE | 2021-10-29 16:44 | Progress Note ---
Assessment and Plan Assessment and plan: #Sepsis secondary to pyelonephritis #Lactic acidosisresolved Increasing cefepime 1 g every 8 hours to cefepime 2 g every 8 hours. Pending urinalysis and urine culture. Infectious disease consulted; appreciate recs. If patient is found to have ESBL, antibiotic will be transitioned to meropenem 1 g every 8 hours. Currently patient does not have abscess associated with right pyelonephritis (per interventional radiology). Consider repeat CT imaging if patient continues to worsen. #Non-insulin dependent type II diabetes mellitus - hemoglobin A1c: Unknown - home regimen: Metformin 500 mg twice daily - current regimen: Moderate SSI - blood glucose goal 140-180 while inpatient - continue to monitor #Advanced care planning -Disease education conducted, care plan discussed, diagnoses discussed, prognosis discussed, and patient acknowledges understanding with care plan -Time: +30 min Disposition Plan: Continue medical management Total Time Spent with Patient (Minutes): 45 minutes History Interval history: Patient became febrile to 103.1 F multiple times last night. Hospitalist Physical - Constitutional Vitals: Temp Pulse Resp BP Pulse Ox 98.9 F 111 H 22 112/63 99 10/29/21 11:20 10/29/21 11:20 10/29/21 11:20 10/29/21 11:20 10/29/21 11:36 General appearance: Present: no acute distress, well-nourished - EENT Eyes: Present: PERRL, EOM intact ENT: hearing intact, clear oral mucosa, dentition normal - Neck Neck: Present: supple, normal ROM - Respiratory Respiratory effort: normal Respiratory: bilateral: CTA - Cardiovascular Rhythm: regular Heart Sounds: Present: S1 & S2 - Extremities Extremities: no ischemia, pulses intact, pulses symmetrical, No edema, normal temperature, normal color, Full ROM Peripheral Pulses: within normal limits - Abdominal General gastrointestinal: soft, tender (Right flank pain on moderate palpation), non-distended, normal bowel sounds - Integumentary Integumentary: Present: clear, warm, dry - Psychiatric Psychiatric: appropriate mood/affect, intact judgment & insight, memory intact, cooperative - Neurologic Neurologic: CNII-XII intact, moves all extremities - Allied Health Allied health notes reviewed: nursing Results - Labs CBC & Chem 7: 10/29/21 08:08 10/29/21 08:08 Labs: Laboratory Last Values WBC 13.5 K/mm3 (4.5-11.0) H 10/29/21 08:08 RBC 4.31 M/mm3 (3.65-5.03) 10/29/21 08:08 Hgb 9.6 gm/dl (10.1-14.3) L 10/29/21 08:08 Hct 29.7 % (30.3-42.9) L D 10/29/21 08:08 MCV 69 fl (79-97) L 10/29/21 08:08 MCH 22 pg (28-32) L 10/29/21 08:08 MCHC 32 % (30-34) 10/29/21 08:08 RDW 18.5 % (13.2-15.2) H 10/29/21 08:08 Plt Count 100 K/mm3 (140-440) L 10/29/21 08:08 Lymph % (Auto) 10.4 % (13.4-35.0) L 10/28/21 11:02 [place] % (Auto) 7.8 % (0.0-7.3) H 10/28/21 11:02 Eos % (Auto) 0.1 % (0.0-4.3) 10/28/21 11:02 Baso % (Auto) 0.5 % (0.0-1.8) 10/28/21 11:02 Lymph # (Auto) 1.3 K/mm3 (1.2-5.4) 10/28/21 11:02 [place] # (Auto) 1.0 K/mm3 (0.0-0.8) H 10/28/21 11:02 Eos # (Auto) 0.0 K/mm3 (0.0-0.4) 10/28/21 11:02 Baso # (Auto) 0.1 K/mm3 (0.0-0.1) 10/28/21 11:02 Add Manual Diff Complete 10/29/21 08:08 Total Counted 100 10/29/21 08:08 Seg Neutrophils % Policy Analyst 10/29/21 08:08 Seg Neuts % (Manual) 84.0 % (40.0-70.0) H 10/29/21 08:08 Band Neutrophils % 5.0 % 10/29/21 08:08 Lymphocytes % (Manual) 9.0 % (13.4-35.0) L 10/29/21 08:08 Reactive Lymphs % (Man) 0 % 10/29/21 08:08 Monocytes % (Manual) 1.0 % (0.0-7.3) 10/29/21 08:08 Eosinophils % (Manual) 0 % (0.0-4.3) 10/29/21 08:08 Basophils % (Manual) 0 % (0.0-1.8) 10/29/21 08:08 Metamyelocytes % 1.0 % 10/29/21 08:08 Myelocytes % 0 % 10/29/21 08:08 Promyelocytes % 0 % 10/29/21 08:08 Blast Cells % 0 % 10/29/21 08:08 Nucleated RBC % Not Reportable 10/29/21 08:08 Seg Neutrophils # 10.1 K/mm3 (1.8-7.7) H 10/28/21 11:02 Seg Neutrophils # Man 11.3 K/mm3 (1.8-7.7) H 10/29/21 08:08 Band Neutrophils # 0.7 K/mm3 10/29/21 08:08 Lymphocytes # (Manual) 1.2 K/mm3 (1.2-5.4) 10/29/21 08:08 Abs React Lymphs (Man) 0.0 K/mm3 10/29/21 08:08 Monocytes # (Manual) 0.1 K/mm3 (0.0-0.8) 10/29/21 08:08 Eosinophils # (Manual) 0.0 K/mm3 (0.0-0.4) 10/29/21 08:08 Basophils # (Manual) 0.0 K/mm3 (0.0-0.1) 10/29/21 08:08 Metamyelocytes # 0.1 K/mm3 10/29/21 08:08 Myelocytes # 0.0 K/mm3 10/29/21 08:08 Promyelocytes # 0.0 K/mm3 10/29/21 08:08 Blast Cells # 0.0 K/mm3 10/29/21 08:08 WBC Morphology Not Reportable 10/29/21 08:08 Hypersegmented Neuts Not Reportable 10/29/21 08:08 Hyposegmented Neuts Not Reportable 10/29/21 08:08 Hypogranular Neuts Not Reportable 10/29/21 08:08 Smudge Cells Not Reportable 10/29/21 08:08 Toxic Granulation Not Reportable 10/29/21 08:08 Toxic Vacuolation Not Reportable 10/29/21 08:08 Dohle Bodies Not Reportable 10/29/21 08:08 Pelger-Huet Anomaly Not Reportable 10/29/21 08:08 Melvin Rods Not Reportable 10/29/21 08:08 Platelet Estimate Consistent w auto 10/29/21 08:08 Clumped Platelets Not Reportable 10/29/21 08:08 Plt Clumps, EDTA Not Reportable 10/29/21 08:08 Large Platelets Not Reportable 10/29/21 08:08 Giant Platelets Not Reportable 10/29/21 08:08 Platelet Satelliting Not Reportable 10/29/21 08:08 Plt Morphology Comment Not Reportable 10/29/21 08:08 RBC Morphology Not Reportable 10/29/21 08:08 Dimorphic RBCs Not Reportable 10/29/21 08:08 Polychromasia Few 10/29/21 08:08 Hypochromasia 1+ 10/29/21 08:08 Poikilocytosis Not Reportable 10/29/21 08:08 Anisocytosis Not Reportable 10/29/21 08:08 Microcytosis Not Reportable 10/29/21 08:08 Macrocytosis Not Reportable 10/29/21 08:08 Spherocytes Not Reportable 10/29/21 08:08 Pappenheimer Bodies Not Reportable 10/29/21 08:08 Sickle Cells Not Reportable 10/29/21 08:08 Target Cells Few 10/29/21 08:08 Tear Drop Cells Not Reportable 10/29/21 08:08 Ovalocytes Not Reportable 10/29/21 08:08 Helmet Cells Not Reportable 10/29/21 08:08 Carranza-Muldrow Bodies Not Reportable 10/29/21 08:08 [place] Rings Not Reportable 10/29/21 08:08 Sharon Cells Not Reportable 10/29/21 08:08 Bite Cells Not Reportable 10/29/21 08:08 Crenated Cell Not Reportable 10/29/21 08:08 Elliptocytes Few 10/29/21 08:08 Acanthocytes (Spur) Not Reportable 10/29/21 08:08 Rouleaux Not Reportable 10/29/21 08:08 Hemoglobin C Crystals Not Reportable 10/29/21 08:08 Schistocytes Not Reportable 10/29/21 08:08 Malaria parasites Not Reportable 10/29/21 08:08 Jake Bodies Not Reportable 10/29/21 08:08 Hem Pathologist Commnt No 10/29/21 08:08 Sodium 138 mmol/L (137-145) 10/29/21 08:08 Potassium 3.1 mmol/L (3.6-5.0) L D 10/29/21 08:08 Chloride 102.7 mmol/L (98-107) 10/29/21 08:08 Carbon Dioxide 21 mmol/L (22-30) L 10/29/21 08:08 Anion Gap 17 mmol/L 10/29/21 08:08 BUN 7 mg/dL (7-17) 10/29/21 08:08 Creatinine 0.7 mg/dL (0.6-1.2) 10/29/21 08:08 Estimated GFR > 60 ml/min 10/29/21 08:08 BUN/Creatinine Ratio 10 % 10/29/21 08:08 Glucose 208 mg/dL (65-100) H 10/29/21 08:08 POC Glucose 247 mg/dL (70-105) H 10/29/21 11:18 Lactic Acid 1.60 mmol/L (0.7-2.0) 10/29/21 08:08 Calcium 8.3 mg/dL (8.4-10.2) L 10/29/21 08:08 Total Bilirubin 0.70 mg/dL (0.1-1.2) 10/28/21 11:02 AST 36 units/L (5-40) 10/28/21 11:02 ALT 41 units/L (7-56) 10/28/21 11:02 Alkaline Phosphatase 147 units/L (35-129) H 10/28/21 11:02 Total Protein 7.7 g/dL (6.3-8.2) 10/28/21 11:02 Albumin 4.6 g/dL (3.9-5) 10/28/21 11:02 Albumin/Globulin Ratio 1.5 % 10/28/21 11:02 Lipase 17 units/L (13-60) 10/28/21 11:02 Blood Type A POSITIVE 10/28/21 19:00 Antibody Screen Negative 10/28/21 19:00 Microbiology: Microbiology 10/28/21 11:02 Peripheral/Venous Blood Culture - Preliminary 10/28/21 11:02 Peripheral/Venous Blood Culture - Preliminary Khan/IV: Voiding Method Toilet Active Medications - Current Medications Current Medications: Generic Name Dose Route Start Last Admin Trade Name Freq PRN Reason Stop Dose Admin Acetaminophen 650 mg 10/28/21 18:45 10/29/21 04:01 Acetaminophen 325 Mg Tab PO 650 mg Q6H PRN Administration Pain, Mild (1-3) Dextrose 50 ml 10/28/21 18:51 Dextrose 50% In Water (25gm) 50 Ml Syringe IV Q30MIN PRN Hypoglycemia Protocol Diazepam 2 mg 10/28/21 18:51 Diazepam 2 Mg Tab PO TID PRN Anxiety Hydromorphone HCl 0.25 mg 10/28/21 18:45 Hydromorphone 0.5 Mg/0.5 Ml Inj IV Q4H PRN Pain, Moderate (4-6) Hydromorphone HCl 0.5 mg 10/28/21 18:45 Hydromorphone 0.5 Mg/0.5 Ml Inj IV Q23H PRN Pain , Severe (7-10) Cefepime HCl 2 gm in 100 mls @ 200 mls/hr 10/28/21 19:00 10/29/21 09:45 Cefepime/Ns 2 Gm/100 Ml IV 200 mls/hr Q12H [facility] Administration Protocol Insulin Human Lispro 0 unit 10/28/21 22:00 10/29/21 13:13 Insulin Lispro 100 Unit/Ml SUB-Q 3 unit ACHS [facility] Administration Protocol Ondansetron HCl 4 mg 10/28/21 18:45 Ondansetron 4 Mg/2 Ml Inj IV Q8H PRN Nausea And Vomiting Oxycodone/Acetaminophen 1 tab 10/28/21 18:45 10/29/21 12:25 Oxycodone /Acetaminophen 5-325mg Tab PO 1 tab Q6H PRN Administration Pain, Moderate (4-6) Potassium Chloride 40 meq 10/29/21 14:00 10/29/21 16:01 Potassium Chloride Er 20 Meq Tab PO 10/29/21 22:01 40 meq BID [facility] Administration Sodium Chloride 10 ml 10/28/21 22:00 10/29/21 09:50 Sodium Chloride 0.9% 10 Ml Flush Syringe IV 10 ml BID [facility] Administration Sodium Chloride 10 ml 10/28/21 18:45 Sodium Chloride 0.9% 10 Ml Flush Syringe IV PRN PRN LINE FLUSH
[2021-10-29 18:02] LABS: Color,Urine Yellow (Yellow)
[2021-10-29 18:07] LABS: Bacteria,Urine 1+ /HPF (Negative); Mucus,Urine FEW /HPF
[2021-10-30] MEDS: INSULIN LISPRO 100 UNIT/ML SUB-Q SCH ×2 (04:55→20:07)
--- NOTE | 2021-10-30 11:18 | Progress Note ---
Assessment and Plan Cultures: Blood culture GNR pending finalization A/P: 56 yo F PMHx Dm2 presents with: #Acute sepsis: with fevers, leukocytosis. Secondary to bacteremia; pyelonephritis #Right sided pyelonephritis: with possible renal abscess. If sepsis picture does not improve may need to repeat CT with contrast to further evaluate for potential abscess. #DM2: tight glycemic control for best outcomes. Recs: -Continue cefepime, increase to 2g q8h. -Follow up blood/urine cultures. If ESBL change to meropenem 1g q8h. -If sepsis picture resolves will plan to DC on Cipro 500mg q12h to complete 14 days total antibiotics assuming cultures are sensitive. -If no improvement would need CT with contrast to re-evaluate potential abscess Thank you for the consult, we will continue to follow. Maribel Britton MD [facility] ([facility]) O: [phone] F: [phone] Subjective Date of service: 10/30/21 Interval history: Afebrile overnight, doing better. Blood cultures remain pending. Objective - Exam Narrative Exam: Physical Exam: Constitutional: Alert, cooperative. No acute distress Head, Ears, Nose: Normocephalic, atraumatic. External ears, nose normal Eyes: Conjunctivae/corneas clear. No icterus. No ptosis. Neck: Supple, no meningeal signs Oral: dentition fair, no thrush Cardiovascular: S1, S2 normal. Respiratory: Good air entry, clear to auscultation bilaterally GI: Soft, non-tender; bowel sounds normal. No peritoneal signs. Musculoskeletal: Right flank pain Skin: No rash or abscess Hem/Lymphatic: No palpable cervical or supraclavicular nodes. No lymphangitis Psych: Mood ok. Affect normal Neurological: Awake, alert, oriented. No gross abnormality - Constitutional Vitals: Vital Signs Temp Pulse Resp BP Pulse Ox 97.7 F 104 H 16 149/74 100 10/29/21 22:50 10/29/21 22:50 10/30/21 00:00 10/29/21 22:50 10/30/21 00:00 Temperature -Last 24 Hours Temperature 97.7 F Temperature 98.8 F Temperature 103.0 F Temperature 98.9 F - Labs CBC & Chem 7: 10/29/21 08:08 10/29/21 08:08 Labs: Abnormal lab results 10/29/21 10/29/21 10/29/21 Range/Units 08:08 11:18 16:35 Seg Neuts % (Manual) 84.0 H (40.0-70.0) % Lymphocytes % (Manual) 9.0 L (13.4-35.0) % Seg Neutrophils # Man 11.3 H (1.8-7.7) K/mm3 POC Glucose 247 H 226 H (70-105) mg/dL Hemoglobin A1c (4-6) % 10/29/21 10/29/21 10/30/21 Range/Units 18:57 22:17 07:25 Seg Neuts % (Manual) (40.0-70.0) % Lymphocytes % (Manual) (13.4-35.0) % Seg Neutrophils # Man (1.8-7.7) K/mm3 POC Glucose 207 H 157 H (70-105) mg/dL Hemoglobin A1c 7.8 H (4-6) %
[2021-10-30] MEDS: INSULIN REGULAR, HUMAN 100 UNITS/1 ML SUB-Q SCH ×4 (11:31→23:34)
[2021-10-30] MEDS: metFORMIN 500 MG TAB PO SCH ×2 (11:31→17:13)
[2021-10-30 11:56] LABS: Basophils % (Auto) 0.3 % (0.0-1.8); Eosinophils % (Auto) 0.2 % (0.0-4.3); Hematocrit 31.6 % (30.3-42.9); Hemoglobin 10.4 gm/dl (10.1-14.3); Lymphocytes # (Auto) 1.4 K/mm3 (1.2-5.4); Lymphocytes % (Auto) 12.2 % (13.4-35.0); Mean Corpuscular HGB Conc 33 % (30-34); Monocytes # (Auto) 1.2 K/mm3 (0.0-0.8); Monocytes % (Auto) 10.5 % (0.0-7.3); Red Blood Count 4.58 M/mm3 (3.65-5.03); Red Cell Distribution Width 18.5 % (13.2-15.2)
[2021-10-30 12:08] LABS: Blood Urea Nitrogen 7 mg/dL (7-17); Calcium 9.2 mg/dL (8.4-10.2); Hemolysis Index 0
[2021-10-30 12:14] LABS: BUN/Creatinine Ratio 12
[2021-10-30] MEDS: CEFEPIME/NS 2 GM/100 ML 2 GM/100 ML BAG IV SCH ×3 (12:14→21:00)
[2021-10-30 12:26] LABS: Mean Corpuscular Volume 69 fl (79-97)
--- NOTE | 2021-10-30 16:23 | Progress Note ---
Assessment and Plan Assessment and plan: #Sepsis secondary to pyelonephritis #Lactic acidosisresolved Continue cefepime 2 g every 8 hours with the plan to ciprofloxacin 500mg [id number] for a total of 14 days (November 11, 2021). Unremarkable urinalysis. Infectious disease consulted; appreciate recs. If patient is found to have ESBL, antibiotic will be transitioned to meropenem 1 g every 8 hours. Currently patient does not have abscess associated with right pyelonephritis (per interventional radiology). Consider repeat CT imaging if patient continues to worsen. #Non-insulin dependent type II diabetes mellitus - hemoglobin A1c: Unknown - home regimen: Metformin 500 mg twice daily - current regimen: Moderate SSI - blood glucose goal 140-180 while inpatient - continue to monitor #Advanced care planning -Disease education conducted, care plan discussed, diagnoses discussed, prognosis discussed, and patient acknowledges understanding with care plan -Time: +30 min #Discharge planning - Patient is pending 24 hours without fever. - Case management has been made aware. - Discharge is tentatively 10/31/2021. Disposition Plan: Continue medical management Total Time Spent with Patient (Minutes): 45 min History Interval history: Patient became febrile to 100.6 F last night. Hospitalist Physical - Constitutional Vitals: Temp Pulse Resp BP Pulse Ox 101.0 F H 97 H 18 124/67 100 10/30/21 05:53 10/30/21 09:38 10/30/21 05:53 10/30/21 09:38 10/30/21 10:00 General appearance: Present: no acute distress, well-nourished - EENT Eyes: Present: PERRL, EOM intact ENT: hearing intact, clear oral mucosa, dentition normal - Neck Neck: Present: supple, normal ROM - Respiratory Respiratory effort: normal Respiratory: bilateral: CTA - Cardiovascular Rhythm: regular Heart Sounds: Present: S1 & S2 - Extremities Extremities: no ischemia, pulses intact, pulses symmetrical, No edema, normal temperature, normal color, Full ROM Extremity abnormal: tenderness (moderate R flank tenderness on moderate palpation) Peripheral Pulses: within normal limits - Abdominal General gastrointestinal: soft, non-tender, non-distended, normal bowel sounds - Integumentary Integumentary: Present: clear, warm, dry - Psychiatric Psychiatric: appropriate mood/affect, intact judgment & insight, memory intact, cooperative - Neurologic Neurologic: CNII-XII intact, moves all extremities - Allied Health Allied health notes reviewed: nursing Results - Labs CBC & Chem 7: 10/30/21 10:59 10/30/21 10:59 Labs: Laboratory Last Values WBC 11.6 K/mm3 (4.5-11.0) H 10/30/21 10:59 RBC 4.58 M/mm3 (3.65-5.03) 10/30/21 10:59 Hgb 10.4 gm/dl (10.1-14.3) 10/30/21 10:59 Hct 31.6 % (30.3-42.9) 10/30/21 10:59 MCV 69 fl (79-97) L 10/30/21 10:59 MCH 23 pg (28-32) L 10/30/21 10:59 MCHC 33 % (30-34) 10/30/21 10:59 RDW 18.5 % (13.2-15.2) H 10/30/21 10:59 Plt Count 100 K/mm3 (140-440) L 10/29/21 08:08 Lymph % (Auto) 12.2 % (13.4-35.0) L 10/30/21 10:59 [place] % (Auto) 10.5 % (0.0-7.3) H 10/30/21 10:59 Eos % (Auto) 0.2 % (0.0-4.3) 10/30/21 10:59 Baso % (Auto) 0.3 % (0.0-1.8) 10/30/21 10:59 Lymph # (Auto) 1.4 K/mm3 (1.2-5.4) 10/30/21 10:59 [place] # (Auto) 1.2 K/mm3 (0.0-0.8) H 10/30/21 10:59 Eos # (Auto) 0.0 K/mm3 (0.0-0.4) 10/30/21 10:59 Baso # (Auto) 0.0 K/mm3 (0.0-0.1) 10/30/21 10:59 Add Manual Diff Complete 10/29/21 08:08 Total Counted 100 10/29/21 08:08 Seg Neutrophils % 76.8 % (40.0-70.0) H 10/30/21 10:59 Seg Neuts % (Manual) 84.0 % (40.0-70.0) H 10/29/21 08:08 Band Neutrophils % 5.0 % 10/29/21 08:08 Lymphocytes % (Manual) 9.0 % (13.4-35.0) L 10/29/21 08:08 Reactive Lymphs % (Man) 0 % 10/29/21 08:08 Monocytes % (Manual) 1.0 % (0.0-7.3) 10/29/21 08:08 Eosinophils % (Manual) 0 % (0.0-4.3) 10/29/21 08:08 Basophils % (Manual) 0 % (0.0-1.8) 10/29/21 08:08 Metamyelocytes % 1.0 % 10/29/21 08:08 Myelocytes % 0 % 10/29/21 08:08 Promyelocytes % 0 % 10/29/21 08:08 Blast Cells % 0 % 10/29/21 08:08 Nucleated RBC % Not Reportable 10/29/21 08:08 Seg Neutrophils # 8.9 K/mm3 (1.8-7.7) H 10/30/21 10:59 Seg Neutrophils # Man 11.3 K/mm3 (1.8-7.7) H 10/29/21 08:08 Band Neutrophils # 0.7 K/mm3 10/29/21 08:08 Lymphocytes # (Manual) 1.2 K/mm3 (1.2-5.4) 10/29/21 08:08 Abs React Lymphs (Man) 0.0 K/mm3 10/29/21 08:08 Monocytes # (Manual) 0.1 K/mm3 (0.0-0.8) 10/29/21 08:08 Eosinophils # (Manual) 0.0 K/mm3 (0.0-0.4) 10/29/21 08:08 Basophils # (Manual) 0.0 K/mm3 (0.0-0.1) 10/29/21 08:08 Metamyelocytes # 0.1 K/mm3 10/29/21 08:08 Myelocytes # 0.0 K/mm3 10/29/21 08:08 Promyelocytes # 0.0 K/mm3 10/29/21 08:08 Blast Cells # 0.0 K/mm3 10/29/21 08:08 WBC Morphology Not Reportable 10/29/21 08:08 Hypersegmented Neuts Not Reportable 10/29/21 08:08 Hyposegmented Neuts Not Reportable 10/29/21 08:08 Hypogranular Neuts Not Reportable 10/29/21 08:08 Smudge Cells Not Reportable 10/29/21 08:08 Toxic Granulation Not Reportable 10/29/21 08:08 Toxic Vacuolation Not Reportable 10/29/21 08:08 Dohle Bodies Not Reportable 10/29/21 08:08 Pelger-Huet Anomaly Not Reportable 10/29/21 08:08 Melvin Rods Not Reportable 10/29/21 08:08 Platelet Estimate Consistent w auto 10/29/21 08:08 Clumped Platelets Not Reportable 10/29/21 08:08 Plt Clumps, EDTA Not Reportable 10/29/21 08:08 Large Platelets Not Reportable 10/29/21 08:08 Giant Platelets Not Reportable 10/29/21 08:08 Platelet Satelliting Not Reportable 10/29/21 08:08 Plt Morphology Comment Not Reportable 10/29/21 08:08 RBC Morphology Not Reportable 10/29/21 08:08 Dimorphic RBCs Not Reportable 10/29/21 08:08 Polychromasia Few 10/29/21 08:08 Hypochromasia 1+ 10/29/21 08:08 Poikilocytosis Not Reportable 10/29/21 08:08 Anisocytosis Not Reportable 10/29/21 08:08 Microcytosis Not Reportable 10/29/21 08:08 Macrocytosis Not Reportable 10/29/21 08:08 Spherocytes Not Reportable 10/29/21 08:08 Pappenheimer Bodies Not Reportable 10/29/21 08:08 Sickle Cells Not Reportable 10/29/21 08:08 Target Cells Few 10/29/21 08:08 Tear Drop Cells Not Reportable 10/29/21 08:08 Ovalocytes Not Reportable 10/29/21 08:08 Helmet Cells Not Reportable 10/29/21 08:08 Carranza-[place] Bodies Not Reportable 10/29/21 08:08 [place] Rings Not Reportable 10/29/21 08:08 [place] Cells Not Reportable 10/29/21 08:08 Bite Cells Not Reportable 10/29/21 08:08 Crenated Cell Not Reportable 10/29/21 08:08 Elliptocytes Few 10/29/21 08:08 Acanthocytes (Spur) Not Reportable 10/29/21 08:08 Rouleaux Not Reportable 10/29/21 08:08 Hemoglobin C Crystals Not Reportable 10/29/21 08:08 Schistocytes Not Reportable 10/29/21 08:08 Malaria parasites Not Reportable 10/29/21 08:08 Jake Bodies Not Reportable 10/29/21 08:08 Hem Pathologist Commnt No 10/29/21 08:08 Sodium 135 mmol/L (137-145) L 10/30/21 10:59 Potassium 4.2 mmol/L (3.6-5.0) D 10/30/21 10:59 Chloride 100.6 mmol/L (98-107) 10/30/21 10:59 Carbon Dioxide 21 mmol/L (22-30) L 10/30/21 10:59 Anion Gap 18 mmol/L 10/30/21 10:59 BUN 7 mg/dL (7-17) 10/30/21 10:59 Creatinine 0.6 mg/dL (0.6-1.2) 10/30/21 10:59 Estimated GFR > 60 ml/min 10/30/21 10:59 BUN/Creatinine Ratio 12 % 10/30/21 10:59 Glucose 223 mg/dL (65-100) H 10/30/21 10:59 POC Glucose 202 mg/dL (70-105) H 10/30/21 16:05 Hemoglobin A1c 7.8 % (4-6) H 10/29/21 18:57 Lactic Acid 1.60 mmol/L (0.7-2.0) 10/29/21 08:08 Calcium 9.2 mg/dL (8.4-10.2) 10/30/21 10:59 Total Bilirubin 0.70 mg/dL (0.1-1.2) 10/28/21 11:02 AST 36 units/L (5-40) 10/28/21 11:02 ALT 41 units/L (7-56) 10/28/21 11:02 Alkaline Phosphatase 147 units/L (35-129) H 10/28/21 11:02 Total Protein 7.7 g/dL (6.3-8.2) 10/28/21 11:02 Albumin 4.6 g/dL (3.9-5) 10/28/21 11:02 Albumin/Globulin Ratio 1.5 % 10/28/21 11:02 Lipase 17 units/L (13-60) 10/28/21 11:02 Urine Color Yellow (Yellow) 10/29/21 17:30 Urine Turbidity Clear (Clear) 10/29/21 17:30 Specific [place] (Man) 1.010 (1.003-1.030) 10/29/21 17:30 Ur Protein (Man) 2+ mg/dL (Negative) 10/29/21 17:30 Ur Ketones (Man) Negative (Negative) 10/29/21 17:30 Ur Nitrite (Man) Negative (Negative) 10/29/21 17:30 Urine Bilirubin (Man) Negative (Negative) 10/29/21 17:30 Urine Ictotest Not Reportable 10/29/21 17:30 Leukocyte Esterase (Man) Negative (Negative) 10/29/21 17:30 Urine WBC (Auto) 4.0 /HPF (0.0-6.0) 10/29/21 17:30 Urine RBC (Auto) 34.0 /HPF (0.0-6.0) 10/29/21 17:30 U Epithel Cells (Auto) 1.0 /HPF (0-13.0) 10/29/21 17:30 Urine Bacteria (Auto) 1+ /HPF (Negative) 10/29/21 17:30 Urine RBC (Manual) 4+ (Negative) 10/29/21 17:30 Urine Mucus Few /HPF 10/29/21 17:30 Blood Type A POSITIVE 10/28/21 19:00 Antibody Screen Negative 10/28/21 19:00 Microbiology: Microbiology 10/28/21 11:02 Peripheral/Venous Blood Culture - Preliminary 10/28/21 11:02 Peripheral/Venous Blood Culture - Preliminary Khan/IV: Voiding Method Toilet Active Medications - Current Medications Current Medications: Generic Name Dose Route Start Last Admin Trade Name Freq PRN Reason Stop Dose Admin Acetaminophen 650 mg 10/28/21 18:45 10/29/21 19:20 Acetaminophen 325 Mg Tab PO 650 mg Q6H PRN Administration Pain, Mild (1-3) Dextrose 50 ml 10/28/21 18:51 Dextrose 50% In Water (25gm) 50 Ml Syringe IV Q30MIN PRN Hypoglycemia Protocol Diazepam 2 mg 10/28/21 18:51 Diazepam 2 Mg Tab PO TID PRN Anxiety Hydromorphone HCl 0.25 mg 10/28/21 18:45 Hydromorphone 0.5 Mg/0.5 Ml Inj IV Q4H PRN Pain, Moderate (4-6) Hydromorphone HCl 0.5 mg 10/28/21 18:45 Hydromorphone 0.5 Mg/0.5 Ml Inj IV Q23H PRN Pain , Severe (7-10) Cefepime HCl 2 gm in 100 mls @ 200 mls/hr 10/30/21 12:00 Cefepime/Ns 2 Gm/100 Ml IV Q8H RANDEE Protocol Insulin Human Regular 0 units 10/30/21 08:00 10/30/21 11:31 Insulin Regular, Human 100 Units/1 Ml SUB-Q 2 units Q6HR RANDEE Administration Protocol Metformin HCl 1,000 mg 10/30/21 08:00 10/30/21 11:31 Metformin 500 Mg Tab PO 1,000 mg BIDDIAB RANDEE Administration Ondansetron HCl 4 mg 10/28/21 18:45 10/29/21 18:12 Ondansetron 4 Mg/2 Ml Inj IV 4 mg Q8H PRN Administration Nausea And Vomiting Oxycodone/Acetaminophen 1 tab 10/28/21 18:45 10/29/21 22:46 Oxycodone /Acetaminophen 5-325mg Tab PO 1 tab Q6H PRN Administration Pain, Moderate (4-6) Sodium Chloride 10 ml 10/28/21 22:00 10/30/21 11:31 Sodium Chloride 0.9% 10 Ml Flush Syringe IV 10 ml BID RANDEE Administration Sodium Chloride 10 ml 10/28/21 18:45 Sodium Chloride 0.9% 10 Ml Flush Syringe IV PRN PRN LINE FLUSH
[2021-10-30 19:57] LABS: Platelet Count 71 K/mm3 (140-440)
[2021-10-30] MEDS: oxyCODONE /ACETAMINOPHEN 5-325MG TAB PO PRN (21:00)
[2021-10-31] MEDS: CEFEPIME/NS 2 GM/100 ML 2 GM/100 ML BAG IV SCH ×3 (03:03→19:32)
[2021-10-31] MEDS: INSULIN REGULAR, HUMAN 100 UNITS/1 ML SUB-Q SCH ×3 (06:27→17:15)
[2021-10-31] MEDS: metFORMIN 500 MG TAB PO SCH ×2 (08:00→17:25)
[2021-10-31] MEDS ORDERED: levoFLOXacin 750 MG TAB PO SCH (10:00)
--- NOTE | 2021-10-31 13:43 | Progress Note ---
Assessment and Plan Assessment and plan: #Sepsis secondary to pyelonephritis #Lactic acidosisresolved #Gram-negative letty bacteremia Gram-negative rods detected in 2 out of 2 bottles. Currently awaiting speciation and sensitivities. Continue cefepime 2 g every 8 hours. Unremarkable urinalysis. Infectious disease consulted; appreciate recs. If patient is found to have ESBL, antibiotic will be transitioned to meropenem 1 g every 8 hours. Currently patient does not have abscess associated with right pyelonephritis (per interventional radiology). Consider repeat CT imaging if patient continues to worsen. #Non-insulin dependent type II diabetes mellitus - hemoglobin A1c: Unknown - home regimen: Metformin 500 mg twice daily - current regimen: Moderate SSI - blood glucose goal 140-180 while inpatient - continue to monitor #Advanced care planning -Disease education conducted, care plan discussed, diagnoses discussed, prognosis discussed, and patient acknowledges understanding with care plan -Time: +30 min #Discharge planning - Patient is pending speciation and sensitivities of gram-negative letty bacteremia. - Case management has been made aware. Disposition Plan: Continue medical management Total Time Spent with Patient (Minutes): 45 minutes History Interval history: No acute events overnight. Hospitalist Physical - Constitutional Vitals: Temp Pulse Resp BP Pulse Ox 98.3 F 90 16 148/94 99 10/31/21 11:23 10/31/21 11:23 10/31/21 11:23 10/31/21 11:23 10/31/21 11:23 General appearance: Present: no acute distress, well-nourished - EENT Eyes: Present: PERRL, EOM intact ENT: hearing intact, clear oral mucosa, dentition normal - Neck Neck: Present: supple, normal ROM - Respiratory Respiratory effort: normal Respiratory: bilateral: CTA - Cardiovascular Rhythm: regular Heart Sounds: Present: S1 & S2 - Extremities Extremities: no ischemia, pulses intact, pulses symmetrical, No edema, normal temperature, normal color, Full ROM Peripheral Pulses: within normal limits - Abdominal General gastrointestinal: soft, non-tender, non-distended, normal bowel sounds - Integumentary Integumentary: Present: clear, warm, dry - Psychiatric Psychiatric: appropriate mood/affect, intact judgment & insight, memory intact, cooperative - Neurologic Neurologic: CNII-XII intact, moves all extremities - Allied Health Allied health notes reviewed: nursing Results - Labs CBC & Chem 7: 10/30/21 10:59 10/30/21 10:59 Labs: Laboratory Last Values WBC 11.6 K/mm3 (4.5-11.0) H 10/30/21 10:59 RBC 4.58 M/mm3 (3.65-5.03) 10/30/21 10:59 Hgb 10.4 gm/dl (10.1-14.3) 10/30/21 10:59 Hct 31.6 % (30.3-42.9) 10/30/21 10:59 MCV 69 fl (79-97) L 10/30/21 10:59 MCH 23 pg (28-32) L 10/30/21 10:59 MCHC 33 % (30-34) 10/30/21 10:59 RDW 18.5 % (13.2-15.2) H 10/30/21 10:59 Plt Count 71 K/mm3 (140-440) L 10/30/21 10:59 Lymph % (Auto) 12.2 % (13.4-35.0) L 10/30/21 10:59 [place] % (Auto) 10.5 % (0.0-7.3) H 10/30/21 10:59 Eos % (Auto) 0.2 % (0.0-4.3) 10/30/21 10:59 Baso % (Auto) 0.3 % (0.0-1.8) 10/30/21 10:59 Lymph # (Auto) 1.4 K/mm3 (1.2-5.4) 10/30/21 10:59 [place] # (Auto) 1.2 K/mm3 (0.0-0.8) H 10/30/21 10:59 Eos # (Auto) 0.0 K/mm3 (0.0-0.4) 10/30/21 10:59 Baso # (Auto) 0.0 K/mm3 (0.0-0.1) 10/30/21 10:59 Add Manual Diff Complete 10/29/21 08:08 Total Counted 100 10/29/21 08:08 Seg Neutrophils % 76.8 % (40.0-70.0) H 10/30/21 10:59 Seg Neuts % (Manual) 84.0 % (40.0-70.0) H 10/29/21 08:08 Band Neutrophils % 5.0 % 10/29/21 08:08 Lymphocytes % (Manual) 9.0 % (13.4-35.0) L 10/29/21 08:08 Reactive Lymphs % (Man) 0 % 10/29/21 08:08 Monocytes % (Manual) 1.0 % (0.0-7.3) 10/29/21 08:08 Eosinophils % (Manual) 0 % (0.0-4.3) 10/29/21 08:08 Basophils % (Manual) 0 % (0.0-1.8) 10/29/21 08:08 Metamyelocytes % 1.0 % 10/29/21 08:08 Myelocytes % 0 % 10/29/21 08:08 Promyelocytes % 0 % 10/29/21 08:08 Blast Cells % 0 % 10/29/21 08:08 Nucleated RBC % Not Reportable 10/29/21 08:08 Seg Neutrophils # 8.9 K/mm3 (1.8-7.7) H 10/30/21 10:59 Seg Neutrophils # Man 11.3 K/mm3 (1.8-7.7) H 10/29/21 08:08 Band Neutrophils # 0.7 K/mm3 10/29/21 08:08 Lymphocytes # (Manual) 1.2 K/mm3 (1.2-5.4) 10/29/21 08:08 Abs React Lymphs (Man) 0.0 K/mm3 10/29/21 08:08 Monocytes # (Manual) 0.1 K/mm3 (0.0-0.8) 10/29/21 08:08 Eosinophils # (Manual) 0.0 K/mm3 (0.0-0.4) 10/29/21 08:08 Basophils # (Manual) 0.0 K/mm3 (0.0-0.1) 10/29/21 08:08 Metamyelocytes # 0.1 K/mm3 10/29/21 08:08 Myelocytes # 0.0 K/mm3 10/29/21 08:08 Promyelocytes # 0.0 K/mm3 10/29/21 08:08 Blast Cells # 0.0 K/mm3 10/29/21 08:08 WBC Morphology Not Reportable 10/29/21 08:08 Hypersegmented Neuts Not Reportable 10/29/21 08:08 Hyposegmented Neuts Not Reportable 10/29/21 08:08 Hypogranular Neuts Not Reportable 10/29/21 08:08 Smudge Cells Not Reportable 10/29/21 08:08 Toxic Granulation Not Reportable 10/29/21 08:08 Toxic Vacuolation Not Reportable 10/29/21 08:08 Dohle Bodies Not Reportable 10/29/21 08:08 Pelger-Huet Anomaly Not Reportable 10/29/21 08:08 Melvin Rods Not Reportable 10/29/21 08:08 Platelet Estimate Consistent w auto 10/29/21 08:08 Clumped Platelets Not Reportable 10/29/21 08:08 Plt Clumps, EDTA Not Reportable 10/29/21 08:08 Large Platelets Not Reportable 10/29/21 08:08 Giant Platelets Not Reportable 10/29/21 08:08 Platelet Satelliting Not Reportable 10/29/21 08:08 Plt Morphology Comment Not Reportable 10/29/21 08:08 RBC Morphology Not Reportable 10/29/21 08:08 Dimorphic RBCs Not Reportable 10/29/21 08:08 Polychromasia Few 10/29/21 08:08 Hypochromasia 1+ 10/29/21 08:08 Poikilocytosis Not Reportable 10/29/21 08:08 Anisocytosis Not Reportable 10/29/21 08:08 Microcytosis Not Reportable 10/29/21 08:08 Macrocytosis Not Reportable 10/29/21 08:08 Spherocytes Not Reportable 10/29/21 08:08 Pappenheimer Bodies Not Reportable 10/29/21 08:08 Sickle Cells Not Reportable 10/29/21 08:08 Target Cells Few 10/29/21 08:08 Tear Drop Cells Not Reportable 10/29/21 08:08 Ovalocytes Not Reportable 10/29/21 08:08 Helmet Cells Not Reportable 10/29/21 08:08 Carranza-[place] Bodies Not Reportable 10/29/21 08:08 [place] Rings Not Reportable 10/29/21 08:08 [place] Cells Not Reportable 10/29/21 08:08 Bite Cells Not Reportable 10/29/21 08:08 Crenated Cell Not Reportable 10/29/21 08:08 Elliptocytes Few 10/29/21 08:08 Acanthocytes (Spur) Not Reportable 10/29/21 08:08 Rouleaux Not Reportable 10/29/21 08:08 Hemoglobin C Crystals Not Reportable 10/29/21 08:08 Schistocytes Not Reportable 10/29/21 08:08 Malaria parasites Not Reportable 10/29/21 08:08 Jake Bodies Not Reportable 10/29/21 08:08 Hem Pathologist Commnt No 10/29/21 08:08 Sodium 135 mmol/L (137-145) L 10/30/21 10:59 Potassium 4.2 mmol/L (3.6-5.0) D 10/30/21 10:59 Chloride 100.6 mmol/L (98-107) 10/30/21 10:59 Carbon Dioxide 21 mmol/L (22-30) L 10/30/21 10:59 Anion Gap 18 mmol/L 10/30/21 10:59 BUN 7 mg/dL (7-17) 10/30/21 10:59 Creatinine 0.6 mg/dL (0.6-1.2) 10/30/21 10:59 Estimated GFR > 60 ml/min 10/30/21 10:59 BUN/Creatinine Ratio 12 % 10/30/21 10:59 Glucose 223 mg/dL (65-100) H 10/30/21 10:59 POC Glucose 175 mg/dL (70-105) H 10/31/21 11:22 Hemoglobin A1c 7.8 % (4-6) H 10/29/21 18:57 Lactic Acid 1.60 mmol/L (0.7-2.0) 10/29/21 08:08 Calcium 9.2 mg/dL (8.4-10.2) 10/30/21 10:59 Total Bilirubin 0.70 mg/dL (0.1-1.2) 10/28/21 11:02 AST 36 units/L (5-40) 10/28/21 11:02 ALT 41 units/L (7-56) 10/28/21 11:02 Alkaline Phosphatase 147 units/L (35-129) H 10/28/21 11:02 Total Protein 7.7 g/dL (6.3-8.2) 10/28/21 11:02 Albumin 4.6 g/dL (3.9-5) 10/28/21 11:02 Albumin/Globulin Ratio 1.5 % 10/28/21 11:02 Lipase 17 units/L (13-60) 10/28/21 11:02 Urine Color Yellow (Yellow) 10/29/21 17:30 Urine Turbidity Clear (Clear) 10/29/21 17:30 Specific [place] (Man) 1.010 (1.003-1.030) 10/29/21 17:30 Ur Protein (Man) 2+ mg/dL (Negative) 10/29/21 17:30 Ur Ketones (Man) Negative (Negative) 10/29/21 17:30 Ur Nitrite (Man) Negative (Negative) 10/29/21 17:30 Urine Bilirubin (Man) Negative (Negative) 10/29/21 17:30 Urine Ictotest Not Reportable 10/29/21 17:30 Leukocyte Esterase (Man) Negative (Negative) 10/29/21 17:30 Urine WBC (Auto) 4.0 /HPF (0.0-6.0) 10/29/21 17:30 Urine RBC (Auto) 34.0 /HPF (0.0-6.0) 10/29/21 17:30 U Epithel Cells (Auto) 1.0 /HPF (0-13.0) 10/29/21 17:30 Urine Bacteria (Auto) 1+ /HPF (Negative) 10/29/21 17:30 Urine RBC (Manual) 4+ (Negative) 10/29/21 17:30 Urine Mucus Few /HPF 10/29/21 17:30 Blood Type A POSITIVE 10/28/21 19:00 Antibody Screen Negative 10/28/21 19:00 Khan/IV: Voiding Method Toilet Active Medications - Current Medications Current Medications: Generic Name Dose Route Start Last Admin Trade Name Freq PRN Reason Stop Dose Admin Acetaminophen 650 mg 10/28/21 18:45 10/29/21 19:20 Acetaminophen 325 Mg Tab PO 650 mg Q6H PRN Administration Pain, Mild (1-3) Dextrose 50 ml 10/28/21 18:51 Dextrose 50% In Water (25gm) 50 Ml Syringe IV Q30MIN PRN Hypoglycemia Protocol Diazepam 2 mg 10/28/21 18:51 Diazepam 2 Mg Tab PO TID PRN Anxiety Hydromorphone HCl 0.25 mg 10/28/21 18:45 Hydromorphone 0.5 Mg/0.5 Ml Inj IV Q4H PRN Pain, Moderate (4-6) Hydromorphone HCl 0.5 mg 10/28/21 18:45 Hydromorphone 0.5 Mg/0.5 Ml Inj IV Q23H PRN Pain , Severe (7-10) Cefepime HCl 2 gm in 100 mls @ 200 mls/hr 10/31/21 11:00 Cefepime/Ns 2 Gm/100 Ml IV Q8H RANDEE Protocol Insulin Human Regular 0 units 10/30/21 08:00 10/31/21 12:11 Insulin Regular, Human 100 Units/1 Ml SUB-Q 3 units Q6HR RANDEE Administration Protocol Metformin HCl 1,000 mg 10/30/21 08:00 10/31/21 08:00 Metformin 500 Mg Tab PO 1,000 mg BIDDIAB RANDEE Administration Ondansetron HCl 4 mg 10/28/21 18:45 10/29/21 18:12 Ondansetron 4 Mg/2 Ml Inj IV 4 mg Q8H PRN Administration Nausea And Vomiting Oxycodone/Acetaminophen 1 tab 10/28/21 18:45 10/30/21 21:00 Oxycodone /Acetaminophen 5-325mg Tab PO 1 tab Q6H PRN Administration Pain, Moderate (4-6) Sodium Chloride 10 ml 10/28/21 22:00 10/31/21 10:42 Sodium Chloride 0.9% 10 Ml Flush Syringe IV 10 ml BID RANDEE Administration Sodium Chloride 10 ml 10/28/21 18:45 Sodium Chloride 0.9% 10 Ml Flush Syringe IV PRN PRN LINE FLUSH
[2021-10-31] MEDS: oxyCODONE /ACETAMINOPHEN 5-325MG TAB PO PRN (19:31)
[2021-11-01] MEDS: INSULIN REGULAR, HUMAN 100 UNITS/1 ML SUB-Q SCH ×4 (02:14→17:57)
[2021-11-01] MEDS: CEFEPIME/NS 2 GM/100 ML 2 GM/100 ML BAG IV SCH ×3 (03:37→21:52)
[2021-11-01] MEDS: metFORMIN 500 MG TAB PO SCH ×2 (08:00→17:35)
--- NOTE | 2021-11-01 09:59 | Progress Note ---
Assessment and Plan Assessment and plan: #Sepsis secondary to pyelonephritis #Lactic acidosisresolved #Gram-negative letty bacteremia Gram-negative rods detected in 2 out of 2 bottles. Currently awaiting speciation and sensitivities. Continue cefepime 2 g every 8 hours. Unremarkable urinalysis. Infectious disease consulted; appreciate recs. If patient is found to have ESBL, antibiotic will be transitioned to meropenem 1 g every 8 hours. Currently patient does not have abscess associated with right pyelonephritis (per interventional radiology). Consider repeat CT imaging if patient continues to worsen. #Non-insulin dependent type II diabetes mellitus - hemoglobin A1c: Unknown - home regimen: Metformin 500 mg twice daily - current regimen: Moderate SSI - blood glucose goal 140-180 while inpatient - continue to monitor #Advanced care planning -Disease education conducted, care plan discussed, diagnoses discussed, prognosis discussed, and patient acknowledges understanding with care plan -Time: +30 min #Discharge planning - Patient is pending speciation and sensitivities of gram-negative letty bacteremia. - Case management has been made aware. Disposition Plan: Continue medical management Total Time Spent with Patient (Minutes): 30 minutes History Interval history: No acute events overnight. Hospitalist Physical - Constitutional Vitals: Temp Pulse Resp BP Pulse Ox 97.8 F 71 18 133/75 100 10/31/21 22:36 10/31/21 22:36 10/31/21 22:36 10/31/21 22:36 11/01/21 08:21 General appearance: Present: no acute distress, well-nourished - EENT Eyes: Present: PERRL, EOM intact ENT: hearing intact, clear oral mucosa, dentition normal - Neck Neck: Present: supple, normal ROM - Respiratory Respiratory effort: normal Respiratory: bilateral: CTA - Cardiovascular Rhythm: regular Heart Sounds: Present: S1 & S2 - Extremities Extremities: no ischemia, pulses intact, pulses symmetrical, No edema, normal temperature, normal color, Full ROM Peripheral Pulses: within normal limits - Abdominal General gastrointestinal: soft, non-tender, non-distended, normal bowel sounds - Integumentary Integumentary: Present: clear, warm, dry - Psychiatric Psychiatric: appropriate mood/affect, intact judgment & insight, memory intact, cooperative - Neurologic Neurologic: CNII-XII intact, moves all extremities - Allied Health Allied health notes reviewed: nursing Results - Labs CBC & Chem 7: 10/30/21 10:59 10/30/21 10:59 Labs: Laboratory Last Values WBC 11.6 K/mm3 (4.5-11.0) H 10/30/21 10:59 RBC 4.58 M/mm3 (3.65-5.03) 10/30/21 10:59 Hgb 10.4 gm/dl (10.1-14.3) 10/30/21 10:59 Hct 31.6 % (30.3-42.9) 10/30/21 10:59 MCV 69 fl (79-97) L 10/30/21 10:59 MCH 23 pg (28-32) L 10/30/21 10:59 MCHC 33 % (30-34) 10/30/21 10:59 RDW 18.5 % (13.2-15.2) H 10/30/21 10:59 Plt Count 71 K/mm3 (140-440) L 10/30/21 10:59 Lymph % (Auto) 12.2 % (13.4-35.0) L 10/30/21 10:59 [place] % (Auto) 10.5 % (0.0-7.3) H 10/30/21 10:59 Eos % (Auto) 0.2 % (0.0-4.3) 10/30/21 10:59 Baso % (Auto) 0.3 % (0.0-1.8) 10/30/21 10:59 Lymph # (Auto) 1.4 K/mm3 (1.2-5.4) 10/30/21 10:59 [place] # (Auto) 1.2 K/mm3 (0.0-0.8) H 10/30/21 10:59 Eos # (Auto) 0.0 K/mm3 (0.0-0.4) 10/30/21 10:59 Baso # (Auto) 0.0 K/mm3 (0.0-0.1) 10/30/21 10:59 Add Manual Diff Complete 10/29/21 08:08 Total Counted 100 10/29/21 08:08 Seg Neutrophils % 76.8 % (40.0-70.0) H 10/30/21 10:59 Seg Neuts % (Manual) 84.0 % (40.0-70.0) H 10/29/21 08:08 Band Neutrophils % 5.0 % 10/29/21 08:08 Lymphocytes % (Manual) 9.0 % (13.4-35.0) L 10/29/21 08:08 Reactive Lymphs % (Man) 0 % 10/29/21 08:08 Monocytes % (Manual) 1.0 % (0.0-7.3) 10/29/21 08:08 Eosinophils % (Manual) 0 % (0.0-4.3) 10/29/21 08:08 Basophils % (Manual) 0 % (0.0-1.8) 10/29/21 08:08 Metamyelocytes % 1.0 % 10/29/21 08:08 Myelocytes % 0 % 10/29/21 08:08 Promyelocytes % 0 % 10/29/21 08:08 Blast Cells % 0 % 10/29/21 08:08 Nucleated RBC % Not Reportable 10/29/21 08:08 Seg Neutrophils # 8.9 K/mm3 (1.8-7.7) H 10/30/21 10:59 Seg Neutrophils # Man 11.3 K/mm3 (1.8-7.7) H 10/29/21 08:08 Band Neutrophils # 0.7 K/mm3 10/29/21 08:08 Lymphocytes # (Manual) 1.2 K/mm3 (1.2-5.4) 10/29/21 08:08 Abs React Lymphs (Man) 0.0 K/mm3 10/29/21 08:08 Monocytes # (Manual) 0.1 K/mm3 (0.0-0.8) 10/29/21 08:08 Eosinophils # (Manual) 0.0 K/mm3 (0.0-0.4) 10/29/21 08:08 Basophils # (Manual) 0.0 K/mm3 (0.0-0.1) 10/29/21 08:08 Metamyelocytes # 0.1 K/mm3 10/29/21 08:08 Myelocytes # 0.0 K/mm3 10/29/21 08:08 Promyelocytes # 0.0 K/mm3 10/29/21 08:08 Blast Cells # 0.0 K/mm3 10/29/21 08:08 WBC Morphology Not Reportable 10/29/21 08:08 Hypersegmented Neuts Not Reportable 10/29/21 08:08 Hyposegmented Neuts Not Reportable 10/29/21 08:08 Hypogranular Neuts Not Reportable 10/29/21 08:08 Smudge Cells Not Reportable 10/29/21 08:08 Toxic Granulation Not Reportable 10/29/21 08:08 Toxic Vacuolation Not Reportable 10/29/21 08:08 Dohle Bodies Not Reportable 10/29/21 08:08 Pelger-Huet Anomaly Not Reportable 10/29/21 08:08 Melvin Rods Not Reportable 10/29/21 08:08 Platelet Estimate Consistent w auto 10/29/21 08:08 Clumped Platelets Not Reportable 10/29/21 08:08 Plt Clumps, EDTA Not Reportable 10/29/21 08:08 Large Platelets Not Reportable 10/29/21 08:08 Giant Platelets Not Reportable 10/29/21 08:08 Platelet Satelliting Not Reportable 10/29/21 08:08 Plt Morphology Comment Not Reportable 10/29/21 08:08 RBC Morphology Not Reportable 10/29/21 08:08 Dimorphic RBCs Not Reportable 10/29/21 08:08 Polychromasia Few 10/29/21 08:08 Hypochromasia 1+ 10/29/21 08:08 Poikilocytosis Not Reportable 10/29/21 08:08 Anisocytosis Not Reportable 10/29/21 08:08 Microcytosis Not Reportable 10/29/21 08:08 Macrocytosis Not Reportable 10/29/21 08:08 Spherocytes Not Reportable 10/29/21 08:08 Pappenheimer Bodies Not Reportable 10/29/21 08:08 Sickle Cells Not Reportable 10/29/21 08:08 Target Cells Few 10/29/21 08:08 Tear Drop Cells Not Reportable 10/29/21 08:08 Ovalocytes Not Reportable 10/29/21 08:08 Helmet Cells Not Reportable 10/29/21 08:08 [place] Bodies Not Reportable 10/29/21 08:08 [place] Rings Not Reportable 10/29/21 08:08 [place] Cells Not Reportable 10/29/21 08:08 Bite Cells Not Reportable 10/29/21 08:08 Crenated Cell Not Reportable 10/29/21 08:08 Elliptocytes Few 10/29/21 08:08 Acanthocytes (Spur) Not Reportable 10/29/21 08:08 Rouleaux Not Reportable 10/29/21 08:08 Hemoglobin C Crystals Not Reportable 10/29/21 08:08 Schistocytes Not Reportable 10/29/21 08:08 Malaria parasites Not Reportable 10/29/21 08:08 [place] Bodies Not Reportable 10/29/21 08:08 Hem Pathologist Commnt No 10/29/21 08:08 Sodium 135 mmol/L (137-145) L 10/30/21 10:59 Potassium 4.2 mmol/L (3.6-5.0) D 10/30/21 10:59 Chloride 100.6 mmol/L (98-107) 10/30/21 10:59 Carbon Dioxide 21 mmol/L (22-30) L 10/30/21 10:59 Anion Gap 18 mmol/L 10/30/21 10:59 BUN 7 mg/dL (7-17) 10/30/21 10:59 Creatinine 0.6 mg/dL (0.6-1.2) 10/30/21 10:59 Estimated GFR > 60 ml/min 10/30/21 10:59 BUN/Creatinine Ratio 12 % 10/30/21 10:59 Glucose 223 mg/dL (65-100) H 10/30/21 10:59 POC Glucose 175 mg/dL (70-105) H 10/31/21 11:22 Hemoglobin A1c 7.8 % (4-6) H 10/29/21 18:57 Lactic Acid 1.60 mmol/L (0.7-2.0) 10/29/21 08:08 Calcium 9.2 mg/dL (8.4-10.2) 10/30/21 10:59 Total Bilirubin 0.70 mg/dL (0.1-1.2) 10/28/21 11:02 AST 36 units/L (5-40) 10/28/21 11:02 ALT 41 units/L (7-56) 10/28/21 11:02 Alkaline Phosphatase 147 units/L (35-129) H 10/28/21 11:02 Total Protein 7.7 g/dL (6.3-8.2) 10/28/21 11:02 Albumin 4.6 g/dL (3.9-5) 10/28/21 11:02 Albumin/Globulin Ratio 1.5 % 10/28/21 11:02 Lipase 17 units/L (13-60) 10/28/21 11:02 Urine Color Yellow (Yellow) 10/29/21 17:30 Urine Turbidity Clear (Clear) 10/29/21 17:30 Specific [place] (Man) 1.010 (1.003-1.030) 10/29/21 17:30 Ur Protein (Man) 2+ mg/dL (Negative) 10/29/21 17:30 Ur Ketones (Man) Negative (Negative) 10/29/21 17:30 Ur Nitrite (Man) Negative (Negative) 10/29/21 17:30 Urine Bilirubin (Man) Negative (Negative) 10/29/21 17:30 Urine Ictotest Not Reportable 10/29/21 17:30 Leukocyte Esterase (Man) Negative (Negative) 10/29/21 17:30 Urine WBC (Auto) 4.0 /HPF (0.0-6.0) 10/29/21 17:30 Urine RBC (Auto) 34.0 /HPF (0.0-6.0) 10/29/21 17:30 U Epithel Cells (Auto) 1.0 /HPF (0-13.0) 10/29/21 17:30 Urine Bacteria (Auto) 1+ /HPF (Negative) 10/29/21 17:30 Urine RBC (Manual) 4+ (Negative) 10/29/21 17:30 Urine Mucus Few /HPF 10/29/21 17:30 Blood Type A POSITIVE 10/28/21 19:00 Antibody Screen Negative 10/28/21 19:00 Khan/IV: Voiding Method Toilet Active Medications - Current Medications Current Medications: Generic Name Dose Route Start Last Admin Trade Name Freq PRN Reason Stop Dose Admin Acetaminophen 650 mg 10/28/21 18:45 10/29/21 19:20 Acetaminophen 325 Mg Tab PO 650 mg Q6H PRN Administration Pain, Mild (1-3) Dextrose 50 ml 10/28/21 18:51 Dextrose 50% In Water (25gm) 50 Ml Syringe IV Q30MIN PRN Hypoglycemia Protocol Diazepam 2 mg 10/28/21 18:51 Diazepam 2 Mg Tab PO TID PRN Anxiety Hydromorphone HCl 0.25 mg 10/28/21 18:45 Hydromorphone 0.5 Mg/0.5 Ml Inj IV Q4H PRN Pain, Moderate (4-6) Hydromorphone HCl 0.5 mg 10/28/21 18:45 Hydromorphone 0.5 Mg/0.5 Ml Inj IV Q23H PRN Pain , Severe (7-10) Cefepime HCl 2 gm in 100 mls @ 200 mls/hr 10/31/21 11:00 11/01/21 03:37 Cefepime/Ns 2 Gm/100 Ml IV 200 mls/hr Q8H RANDEE Administration Protocol Insulin Human Regular 0 units 10/30/21 08:00 11/01/21 06:00 Insulin Regular, Human 100 Units/1 Ml SUB-Q 2 units Q6HR RANDEE Administration Protocol Metformin HCl 1,000 mg 10/30/21 08:00 11/01/21 08:00 Metformin 500 Mg Tab PO 1,000 mg BIDDIAB RANDEE Administration Ondansetron HCl 4 mg 10/28/21 18:45 10/29/21 18:12 Ondansetron 4 Mg/2 Ml Inj IV 4 mg Q8H PRN Administration Nausea And Vomiting Oxycodone/Acetaminophen 1 tab 10/28/21 18:45 10/31/21 19:31 Oxycodone /Acetaminophen 5-325mg Tab PO 1 tab Q6H PRN Administration Pain, Moderate (4-6) Sodium Chloride 10 ml 10/28/21 22:00 11/01/21 09:35 Sodium Chloride 0.9% 10 Ml Flush Syringe IV 10 ml BID RANDEE Administration Sodium Chloride 10 ml 10/28/21 18:45 Sodium Chloride 0.9% 10 Ml Flush Syringe IV PRN PRN LINE FLUSH
[2021-11-01] MEDS: oxyCODONE /ACETAMINOPHEN 5-325MG TAB PO PRN (17:39)
[2021-11-02] MEDS: INSULIN REGULAR, HUMAN 100 UNITS/1 ML SUB-Q SCH ×3 (04:31→13:12)
[2021-11-02] MEDS: CEFEPIME/NS 2 GM/100 ML 2 GM/100 ML BAG IV SCH ×2 (04:37→13:12)
[2021-11-02] MEDS: metFORMIN 500 MG TAB PO SCH (09:51)
--- NOTE | 2021-11-02 10:18 | Electrocardiograph Report ---
[facility] Test Date: 2021-10-28 Test Time: 12:18:59 Pat Name: ROYCE BERTRAND Department: Room: A381 1 Gender: F Manager Organizational: CHRISTOPEH : 1965 Requested By: FRANCISCO JAVIER ARREGUIN Order Number: [id number] Reading MD: Júnior Norton Measurements Intervals [place] Rate: 111 P: 50 NM: 133 QRS: 1 QRSD: 85 T: 89 QT: 332 QTc: 452 Interpretive Statements Sinus tachycardia Compared to ECG 06/10/2020 18:12:56 Sinus rhythm no longer present Electronically Signed On 11-02-2021 10:17:54 EDT by Júnior Norton
[2021-11-02 12:35] VITALS: BP 134/73
--- NOTE | 2021-11-02 12:38 | Progress Note ---
Assessment and Plan Cultures: Blood culture E coli peraza sensitive. A/P: 56 yo F PMHx Dm2 presents with: #Acute sepsis: with fevers, leukocytosis. Secondary to bacteremia; pyelonephritis #Right sided pyelonephritis: #E. coli bacteremia: Secondary to pyelonephritis Recs: -Continue cefepime, increase to 2g q8h. -ok to DC on Cipro 500mg q12h to complete 14 days total antibiotics Thank you for the consult, we will sign off. Please call questions. Maribel Britton MD [facility] O: [phone] F: [phone] Subjective Date of service: 11/02/21 Interval history: Afebrile, white count 11.6. Blood cultures with E. coli. Objective - Exam Narrative Exam: Physical Exam: Constitutional: Alert, cooperative. No acute distress Head, Ears, Nose: Normocephalic, atraumatic. External ears, nose normal Eyes: Conjunctivae/corneas clear. No icterus. No ptosis. Neck: Supple, no meningeal signs Oral: dentition fair, no thrush Cardiovascular: S1, S2 normal. Respiratory: Good air entry, clear to auscultation bilaterally GI: Soft, non-tender; bowel sounds normal. No peritoneal signs. Musculoskeletal: Right flank pain Skin: No rash or abscess Hem/Lymphatic: No palpable cervical or supraclavicular nodes. No lymphangitis Psych: Mood ok. Affect normal Neurological: Awake, alert, oriented. No gross abnormality - Constitutional Vitals: Vital Signs Temp Pulse Resp BP Pulse Ox 97.9 F 82 18 134/73 100 11/02/21 11:25 11/02/21 11:25 11/02/21 11:25 11/02/21 11:25 11/02/21 11:25 Temperature -Last 24 Hours Temperature 97.9 F Temperature 98.1 F Temperature 98.0 F Temperature 98.3 F - Labs CBC & Chem 7: 10/30/21 10:59 10/30/21 10:59 Labs: Abnormal lab results 11/01/21 11/01/21 11/01/21 Range/Units 00:03 05:03 17:00 POC Glucose 156 H 166 H 120 H (70-105) mg/dL
--- NOTE | 2021-11-02 12:45 | Discharge Summary ---
Providers - Providers Date of Admission: 10/28/21 18:45 Date of discharge: 11/02/21 Attending physician: LILIANA PENA MD 10/29/21 08:20 Consult to Interventional Radiology [CONS] Routine Consulting Provider: LUIS HANEY Reason For Exam: Pyelonephritis with possible R renal abscess Place consult to:: DR. HANEY Notified:: DR. HANEY Comment:: SPOKE WITH DR. HANEY Consult to Physician [CONS] Routine Comment: Consulting Provider: ERIK NYE Physician Instructions: Reason For Exam: Pyelonephritis +/- associated renal abscess Primary care physician: OTOLARYNGOLOGY SURGEON Hospitalization Reason for admission: Abscess secondary to pyelonephritis Condition: Serious Pertinent studies: Reviewed. Procedures: None. Hospital course: The patient is a 56 YO Female with DM, Medication Noncompliance presents to ED for evaluation. Patient reports "I have a fever and my side hurts". Patient states that she has experienced right flank pain and fever over the past 2 days with persistent symptoms over the same timeframe. Patient transported to [facility] via private vehicle for further care and evaluation of the aforementioned symptoms. The patient was seen and evaluated in the emergency department. All lab and imaging studies reviewed. Patient found to have sepsis secondary to pyelonephritis and due to urinary tract infection, metabolic acidosis, as well as uncontrolled diabetes mellitus. Patient CT scan showed intrarenal hypodensity. Urology transfer line notified and patient deemed not a candidate for transfer and recommend IV antibiotic therapy. Patient admitted to medical floor and initiated on sepsis protocol and treated with IV antibiotic therapy and IV fluid resuscitation therapy. Interventional radiology was consulted due to concern for right renal abscess; however, they determined that the patient does not currently have an abscess that is present. Infectious disease was also consulted for antibiotic management. Patient was found to have E. coli bacteremia secondary to pyelonephritis. Patient was initiated on cefepime 1 g every 8 hours, and this had to be increased to cefepime 2 g every 8 hours due to continued fevers. Patient has been afebrile for multiple days and does not complain of significant right flank tenderness. Patient will be discharging with ciprofloxacin 500 mg every 12 hours to complete a 14-day antibiotic course. Patient was also newly diagnosed with type 2 diabetes mellitus with a hemoglobin A1c of 7.8. Patient started on metformin 1000 mg twice daily. Patient is medically clear for discharge. Disposition: 01 HOME / SELF CARE / HOMELESS Final Discharge Diagnosis (Prints w/discharge instructions): Sepsis secondary to pyelonephritis, E. coli bacteremia, lactic acidosis, newly diagnosed [id number] diabetes melitis Time spent for discharge: 45 min Core Measure Documentation - Palliative Care Palliative Care/ Comfort Measures: Not Applicable - Core Measures Any of the following diagnoses?: none Exam - Constitutional Vitals: Temp Pulse Resp BP Pulse Ox 97.9 F 82 18 134/73 100 11/02/21 11:25 11/02/21 11:25 11/02/21 11:25 11/02/21 11:11/02/21 11:25 General appearance: Present: no acute distress, well-nourished - EENT Eyes: Present: PERRL, EOM intact ENT: hearing intact, clear oral mucosa, dentition normal - Neck Neck: Present: supple, normal ROM - Respiratory Respiratory effort: normal Respiratory: bilateral: CTA - Cardiovascular Rhythm: regular Heart Sounds: Present: S1 & S2 - Extremities Extremities: no ischemia, pulses intact, pulses symmetrical, No edema, normal temperature, normal color, Full ROM Peripheral Pulses: within normal limits - Abdominal General gastrointestinal: Present: soft, non-tender, non-distended, normal bowel sounds Female genitourinary: Present: deferred - Rectal Rectal Exam: deferred - Integumentary Integumentary: Present: clear, warm, dry - Musculoskeletal Musculoskeletal: strength equal bilaterally - Psychiatric Psychiatric: appropriate mood/affect, intact judgment & insight, memory intact, cooperative - Neurologic Neurologic: CNII-XII intact, moves all extremities - Allied Health Allied health notes reviewed: nursing Plan Activity: no restrictions Diet: diabetic Additional Instructions: The patient is a 56 YO Female with DM, Medication Noncompliance presents to ED for evaluation. Patient reports "I have a fever and my side hurts". Patient states that she has experienced right flank pain and fever over the past 2 days with persistent symptoms over the same timeframe. Patient transported to [facility] via private vehicle for further care and evaluation of the aforementioned symptoms. The patient was seen and evaluated in the emergency department. All lab and imaging studies reviewed. Patient found to have sepsis secondary to pyelonephritis and due to urinary tract infection, metabolic acidosis, as well as uncontrolled diabetes mellitus. Patient CT scan showed intrarenal hypodensity. Urology transfer line notified and patient deemed not a candidate for transfer and recommend IV antibiotic therapy. Patient admitted to medical floor and initiated on sepsis protocol and treated with IV antibiotic therapy and IV fluid resuscitation therapy. Interventional radiology was consulted due to concern for right renal abscess; however, they determined that the patient does not currently have an abscess that is present. Infectious disease was also consulted for antibiotic management. Patient was found to have E. coli bacteremia secondary to pyelonephritis. Patient was initiated on cefepime 1 g every 8 hours, and this had to be increased to cefepime 2 g every 8 hours due to continued fevers. Patient has been afebrile for multiple days and does not complain of significant right flank tenderness. Patient will be discharging with ciprofloxacin 500 mg every 12 hours to complete a 14-day antibiotic course. Patient was also newly diagnosed with type 2 diabetes mellitus with a hemoglobin A1c of 7.8. Patient started on metformin 1000 mg twice daily. Patient is medically clear for discharge. Care Plan Goals: Patient is medically clear for discharge. Assessment: The patient is a 56 YO Female with DM, Medication Noncompliance presents to ED f or evaluation. Patient reports "I have a fever and my side hurts". Patient states that she has experienced right flank pain and fever over the past 2 days with persistent symptoms over the same timeframe. Patient transported to [facility] via private vehicle for further care and evaluation of the aforementioned symptoms. The patient was seen and evaluated in the emergency department. All lab and imaging studies reviewed. Patient found to have sepsis secondary to pyelonephritis and due to urinary tract infection, metabolic acidosis, as well as uncontrolled diabetes mellitus. Patient CT scan showed intrarenal hypodensity. Urology transfer line notified and patient deemed not a candidate for transfer and recommend IV antibiotic therapy. Patient admitted to medical floor and initiated on sepsis protocol and treated with IV antibiotic therapy and IV fluid resuscitation therapy. Interventional radiology was consulted due to concern for right renal abscess; however, they determined that the patient does not currently have an abscess that is present. Infectious disease was also consulted for antibiotic management. Patient was found to have E. coli bacteremia secondary to pyelonephritis. Patient was initiated on cefepime 1 g every 8 hours, and this had to be increased to cefepime 2 g every 8 hours due to continued fevers. Patient has been afebrile for multiple days and does not c omplain of significant right flank tenderness. Patient will be discharging with ciprofloxacin 500 mg every 12 hours to complete a 14-day antibiotic course. Patient was also newly diagnosed with type 2 diabetes mellitus with a hemoglobin A1c of 7.8. Patient started on metformin 1000 mg twice daily. Patient is medically clear for discharge. Follow up with: JAUN PIKE MD [Staff Physician] - 14 Days Forms: Work/School Release Form Prescriptions: metFORMIN [Glucophage] 1,000 mg PO BIDDIAB #120 tablet
== END 2021-11-02 14:30 | disposition home or self-care (01) | DRG 872 ==
LOC: ED 10:28 → 3A 18:45
PROVIDERS: ADMIT Internal Medicine; ATTEND Student in an Organized Health Care Education/Training Program
DX: A41.51 Sepsis due to Escherichia coli [E. coli] (principal); N10 Acute pyelonephritis; E87.2 Acidosis; E11.9 Type 2 diabetes mellitus without complications; R65.20 Severe sepsis without septic shock; Z82.49 Family history of ischemic heart disease and other diseases of the circulatory system
CPT/HCPCS: 36415; 74177; 80048; 80053; 81001; 82140; 82962; 83036; 83690; 85007; 85025; 86850; 86900; 86901; 87040; 87076; 87086; 87186; 93005; 94760; 96365; 96367; 96375; 96376; 99285; G0378; Q9967; J0692; J1170; J1815; J1885; J2270; J2405; J2543; J3370; J7030; J7040